=== PATIENT | female | born 1965 | race Caucasian/White ===

== ENCOUNTER 2019-10-06 14:52 | Emergency (ER) | payer OTHER, SELFPAY ==
[2019-10-06 15:03] VITALS: BP 123/73; PULSE 95; RESP 18; TEMP 36.6; O2SAT 100
--- NOTE | 2019-10-06 15:04 | ED.GENADULT ---
HPI - General Adult General Chief complaint: Ear Stated complaint: right ear pain Time Seen by Provider: 10/06/19 15:05 Source: patient and RN notes reviewed Mode of arrival: ambulatory Limitations: no limitations History of Present Illness HPI narrative: This is a 54 years old female presented office for evaluation of right ear pain for 1 week. Pain is getting worse especially at nighttime when she lay down. She also report right side gland pain and hurt to swallow. Denies fever or cough.She took Tylenol with no changes.She does not use Q-tips to clean her ear. Related Data Home Medications Medication Instructions Recorded Confirmed duloxetine 60 mg capsule,delayed 60 mg PO DAILY 08/20/19 10/06/19 release levothyroxine 25 mcg tablet 25 mcg PO DAILY 08/20/19 10/06/19 linaclotide 72 mcg capsule 72 mcg PO QAM 08/20/19 10/06/19 pantoprazole 20 mg tablet,delayed 20 mg PO QAM 08/20/19 10/06/19 release trazodone 50 mg tablet 50 mg PO DAILY tablet 08/20/19 10/06/19 vilazodone 40 mg tablet 40 mg PO DAILY 08/20/19 10/06/19 conjugated estrogens [Premarin] 1.25 mg DAILY 10/06/19 10/06/19 medroxyprogesterone 5 mg DAILY 10/06/19 10/06/19 Allergies Allergy/AdvReac Type Severity Reaction Status Date / Time lamotrigine Allergy Unknown Hallucinati Verified 08/20/19 09:53 ng Review of Systems Review of Systems: Narrative: CONSTITUTIONAL: Denies fever ENT: Denies sinus headache/drainage CARDIOVASCULAR: Denies chest pain RESPIRATORY: Denies cough GASTROINTESTINAL: Denies abdominal pain, nausea, vomiting SKIN: Denies rash MUSCULOSKELETAL: Denies acute back pain, joint pain, or myalgia. NEUROLOGIC: Denies lightheaded PMFSH Past Medical History Medical History Chronic pancreatitis Chronic post-traumatic headache, not intractable Difficulty concentrating Diverticulosis of intestine, part unspecified, without perforation or abscess with bleeding Gastric polyp History of gastric polyp History of traumatic brain injury Hypothyroidism Insomnia Severe episode of recurrent major depressive disorder, without psychotic features Family History Family History Father Hypertension Cerebrovascular accident Family history of congestive heart failure Other Carcinoma of colon Family history of attention deficit hyperactivity disorder (ADHD) Family history of malignant neoplasm Family history of mental disorder Social History Social History Smoking status: Never smoker Second hand tobacco smoke exposure: No Alcohol intake: never Substance use: never Substance use type: does not use Gender identity (if verbalized by the patient): Female Exam Narrative: Exam Narrative: GENERAL: This is a well-nourished, well-developed patient, in no apparent distress. EYES: Sclera clear/white. Vision is grossly intact. EARS: External ears normal, auditory canals clear and without drainage, Left TM appears dull with suppurative and bulging. No erythema. Right TM noted fluid bubbles. Hearing grossly intact. NOSE: External nose normal with no obvious nasal discharge, nares without redness, no rhinorrhea. THROAT: Mucous membranes moist, posterior pharynx clear. NECK: Neck supple, non-tender without lymphadenopathy, masses or thyromegaly. CARDIOVASCULAR: Regular rate and rhythm without murmurs, gallops, or rubs. RESPIRATORY: Clear to auscultation. Breath sounds equal bilaterally. No wheezes, rales, or rhonchi. GASTROINTESTINAL: Abdomen soft, non-tender, nondistended. Bowel sounds are active. No hepato-splenomegaly, or palpable masses. No guarding. SKIN: warm, intact with no suspicious lesions or rash, good texture and turgor. NEURO: awake, alert, and oriented to person, place and time. There were no obvious focal neurologic abnormalities. Steady gait Daniel Coma Scale
== END 2019-10-06 15:16 | disposition home or self-care (01) ==
PROVIDERS: Emergency Provider Nurse Practitioner; PCP Family Medicine
DX: H65.01 Acute serous otitis media, right ear (principal); E03.9 Hypothyroidism, unspecified; F33.9 Major depressive disorder, recurrent, unspecified; Z87.820 Personal history of traumatic brain injury
CPT/HCPCS: 99213; G0463

== ENCOUNTER → 2020-10-30 13:56 | Outpatient (CLI) | payer OTHER, SELFPAY ==
--- NOTE | ~2020-10-30 | US_ITS ---
EXAMINATION: US transvaginal DATE: 10/30/2020 14:27 INDICATION: Postmenopausal bleeding TECHNIQUE: Multiple endovaginal sonographic images of the pelvis were obtained. COMPARISON: 12/01/2015 FINDINGS: The uterus measures 8.1 x 4.0 x 4.9 cm. The endometrial complex measures 3 mm. The ovaries are not visualized however no adnexal abnormality is seen. There is no free fluid in the pelvis. IMPRESSION: 1. No sonographic correlate for the patient's symptoms. Reviewed, dictated and finalized at location A. ESSES CHEMICAL DESIGN ENGINEER
== END ==
PROVIDERS: Visit Provider Obstetrics & Gynecology Gynecology
DX: N95.0 Postmenopausal bleeding (principal)
CPT/HCPCS: 76830

== ENCOUNTER 2020-12-18 14:57 | Outpatient (CLI) | payer OTHER, SELFPAY ==
[2020-12-18 15:59] LABS: Alanine Aminotransferase 19 U/L (4-35); Aspartate Amino Transferase 24 U/L (14-36)
== END 2020-12-18 14:58 | disposition home or self-care (01) ==
PROVIDERS: PCP Family Medicine; Visit Provider Podiatrist Foot & Ankle Surgery
DX: B35.1 Tinea unguium (principal)
CPT/HCPCS: 36415; 84450; 84460

== ENCOUNTER 2021-05-21 15:01 | Outpatient (CLI) | payer OTHER, SELFPAY ==
--- NOTE | ~2021-05-21 | XR_ITS ---
XR shoulder LT min 2V 05/21/2021 15:41 INDICATION: Left shoulder pain PROCEDURE: 4 views left shoulder COMPARISON: No prior studies for comparison. FINDINGS: Fracture, dislocation or subluxation is not identified. The soft tissues appear within norm al limits. No foreign bodies are identified. IMPRESSION: 1: NO ACUTE BONE OR JOINT ABNORMALITY IDENTIFIED. Reviewed, dictated and finalized at location A.
== END 2021-05-21 15:02 | disposition home or self-care (01) ==
LOC: ANHIMG 15:05
PROVIDERS: PCP Family Medicine; Visit Provider Nurse Practitioner Family
DX: M25.512 Pain in left shoulder (principal)
CPT/HCPCS: 73030

== ENCOUNTER → 2021-08-29 13:47 | Outpatient (CLI) | payer OTHER, SELFPAY ==
--- NOTE | ~2021-08-29 | US_ITS ---
EXAMINATION: US transvaginal DATE: 08/29/2021 14:14 INDICATION: Postmenopausal bleeding. TECHNIQUE: Multiple transvaginal sonographic images of the pelvis were obtained. COMPARISON: ultrasound 10/30/20 FINDINGS: The uterus measures 9.1 x 4.5 x 6.4 cm. There is no free fluid in the pelvis. The endometrial complex measures 20 mm in thickness. The ovaries are not visualized. IMPRESSION: 1. Thickened endometrial complex. The differential diagnosis includes endometrial hyperplasia, polyp, and carcinoma. Biopsy is recommended. Reviewed, dictated and finalized at location D. ETICIAN IMPRESSION: 1. Thickened endometrial complex. The differential diagnosis includes endometri al hyperplasia, polyp, and carcinoma. Biopsy is recommended.
== END ==
PROVIDERS: PCP Family Medicine; Visit Provider Obstetrics & Gynecology Gynecology
DX: N95.0 Postmenopausal bleeding (principal); R93.89 Abnormal findings on diagnostic imaging of other specified body structures
CPT/HCPCS: 76830

== ENCOUNTER 2021-09-10 02:52 | Day surgery (SDC) | payer OTHER, SELFPAY ==
[2021-09-05 08:17] VITALS: BMI 30.2
--- NOTE | 2021-09-05 08:23 | PC.NURSE ---
Report to the Outpatient Waiting Room, entrance under the green pavilion located off [facility], at time 0800 on date 09/10/21. OR Time: 1000. - You will be asked a series of questions to screen for COVID 19 for your protection. - A mask is required within the hospital. - No visitors are allowed at this time. Preoperative COVID Testing Requirements: No COVID Test needed if: (proof is required; if not received patient will have Rapid Test prior to entry) - Patient has received COVID Vaccine at least 14 days prior to procedure date or - Patient has positive COVID test result within last 90 days of surgery date. COVID Test needed if above criteria is not met Patients may have clear liquids (water, carbonated beverages, clear teas, apple juice) until 3 hours prior to surgery with a maximum of 20 ounces. - No food from midnight until time of surgery Take the following medications with a SIP of water the morning of surgery: DULOXETINE, ESTRADIOL, LEVOTHYROXINE, TRAZODONE, VILAZODONE Medications to discontinue per physician: VITAMINS/SUPPLEMENTS Date to take last dose: 09/06/21 Please no make-up, nail maori, hairspray, perfume, deodorant, or body powder the day of surgery. No jewelry (including any body piercings) or valuables the day of surgery, leave them at home. Please take a shower or bath the night before, or the morning of, surgery with an antibacterial soap. Wear comfortable, loose fitting clothing. - Jewelry must be removed prior to entering the operating room. Rings and piercings that are not removed may be cut off. - The hospital will not accept responsibility for valuables. - Please leave all valuables, including medications, at home the day of surgery. If you are going home after surgery, a licensed tractor trailer driver must drive you home. - NO public transportation without another adult. - We recommend that an adult stay with you for 24 hours following discharge. - We also recommend that you do not drive, make important decision, drink alcoholic beverages, or take any drugs that were not prescribed by your health care provider for at least 24 hours after your discharge time. Follow any additional instructions given to you from your surgeon. Telephone instructions given to PAT GRIFFIN and asked if any additional questions and then verbalized understanding. Patient advised to call surgeon office or pre surgery nurse liaison [phone] if any additional questions.
[2021-09-10 06:06] VITALS: BP 114/66; PULSE 73; RESP 20; TEMP 36.6; O2SAT 98
[2021-09-10] MEDS: ACETAMINOPHEN 500 MG TABLET 1000 MG PO (06:34)
[2021-09-10] MEDS: LACTATED RINGERS 1,000 ML 30 ML IV CONT (06:35)
--- NOTE | 2021-09-10 06:48 | WPDANESEPPF ---
Anes - Initial Pre Proc Eval Procedure: Operation Date: 09/10/21 07:30 Proposed Procedures p Hysteroscopy, Dilation and Curettage - Ritika Tolliver MD Date/Time: 09/10/21 06:48 Surgeon: Ritika Tolliver MD Pre Op Diagnosis: post menopausal bleeding Patient Data Age: 56 Gender: F Height: 1.7 m Weight: 88.55 kg Last Vital Signs Temp 36.6 C 09/10/21 06:06 Pulse 73 09/10/21 06:06 Resp 20 09/10/21 06:06 BP 114/66 09/10/21 06:06 Pulse Ox 98 09/10/21 06:06 Allergies Allergy/AdvReac Type Severity Reaction Status Date / Time lamotrigine Allergy Unknown Hallucinati Verified 09/10/21 06:08 ng Home Medications Medication Instructions Recorded Confirmed Type levothyroxine 25 mcg tablet 25 mcg PO DAILY 08/20/19 09/10/21 History pantoprazole 20 mg tablet,delayed 20 mg PO QAM 08/20/19 09/10/21 History release duloxetine 60 mg capsule,delayed 60 mg PO DAILY #90 cap 01/16/21 09/10/21 Rx release estradiol 1 mg PO DAILY 09/05/21 09/10/21 History vitamin B complex 1 tablet PO DAILY 09/05/21 09/10/21 History trazodone 50 mg PO HS 09/10/21 09/10/21 History vilazodone [Viibryd] 40 mg PO DAILY 09/10/21 09/10/21 History Patient hx anesthesia problems: none Family hx anesthesia problems: none Results Review: All pre-operative results and documents have been reviewed as part of the pre-operative evaluation. [facility] Past Medical History Medical History Chronic pancreatitis Chronic post-traumatic headache, not intractable Difficulty concentrating Diverticulosis of intestine, part unspecified, without perforation or abscess with bleeding Gastric polyp History of gastric polyp History of traumatic brain injury Hypothyroidism Insomnia Severe episode of recurrent major depressive disorder, without psychotic features Surgical History Surgical History History of sphincterotomy of sphincter of Oddi Family History Family History Father Hypertension Cerebrovascular accident Family history of congestive heart failure Other Carcinoma of colon Family history of attention deficit hyperactivity disorder (ADHD) Family history of malignant neoplasm Family history of mental disorder Social History Social History Social History: Smoking status: Never smoker Second hand tobacco smoke exposure: No Alcohol intake: never Substance use: never Substance use type: does not use Living arrangements: with family Gender identity (if verbalized by the patient): Female Sexual Orientation (if Verbalized by the Patient): Straight or Heterosexual Spiritual care concerns: No Anes - Eval Final PreProcedure Day of Procedure 09/10/21 06:48 Patient weight: obese Heart: regular rate and rhythm Lungs: clear to auscultation Airway: Mallampati scale class II Neurological: alert and oriented Last oral intake: >/= 8 hours ASA classification: II Emergent: no Anesthetic plan: proceed Anesthesia type and monitoring: general GIVS and standard monitoring Results Review: All pre-operative results and documents have been reviewed as part of the pre-operative evaluation. Informed Consent: The patient's anesthetic plan and its attendant risks and benefits were discussed with the patient/family/POA. Questions were solicited and answers provided to the satisfaction of the patient/family/POA.
--- NOTE | 2021-09-10 07:08 | WPDHPUPDATE1 ---
History and Physical Update Update Date/Time: 09/10/21 07:08 History and Physical has been reviewed, including an updated exam of the patient. There are NO changes in the patient's condition. Risks, benefits, and alternatives have been discussed and questions answered. Patient agrees to proceed with procedure.
--- NOTE | 2021-09-10 07:09 | PM.HPGS ---
History of Present Illness History of Present Illness Consent: Risks, benefits, and alternatives have been discussed and questions answered. Patient agrees to proceed with procedure. Chief complaint: post menopausal bleeding Narrative: Felisa Montejo is a 56 year old female with postmenopausal bleeding for over 1 month. She was evaluated on August 28 with a normal pelvic exam. She underwent pelvic ultrasound which did reveal a thickened endometrium at 20mm. It was recommended to proceed with D&C hysteroscopy. Possible pathology was discussed. Risks of infection, bleeding, and perforation were reviewed. Review of Systems Review of Systems: not repeated day of surgery; patient states no changes in status PMFSH Past Medical History Medical History (Updated 09/10/21 @ 07:14 by Ritika Tolliver MD) Chronic pancreatitis Chronic post-traumatic headache, not intractable Diverticulosis of intestine, part unspecified, without perforation or abscess with bleeding History of anxiety History of gastric polyp History of traumatic brain injury Hypothyroidism Insomnia (normal spontaneous vaginal delivery) x3 Severe episode of recurrent major depressive disorder, without psychotic features Surgical History Surgical History (Updated 09/10/21 @ 07:13 by Ritika Tolliver MD) History of hysteroscopy 2016 History of sphincterotomy of sphincter of Oddi Status post laparoscopy 1981,83,92 Status post LEEP (loop electrosurgical excision procedure) of cervix Status post tubal ligation Family History Family History Father Hypertension Cerebrovascular accident Family history of congestive heart failure Other Carcinoma of colon Family history of attention deficit hyperactivity disorder (ADHD) Family history of malignant neoplasm Family history of mental disorder Social History Social History Social History: Smoking status: Never smoker Second hand tobacco smoke exposure: No Alcohol intake: never Substance use: never Substance use type: does not use Living arrangements: with family Gender identity (if verbalized by the patient): Female Sexual Orientation (if Verbalized by the Patient): Straight or Heterosexual Spiritual care concerns: No Meds Home Medications and Allergies Home Medications Medication Instructions Recorded Confirmed Type levothyroxine 25 mcg tablet 25 mcg PO DAILY 08/20/19 09/10/21 History pantoprazole 20 mg tablet,delayed 20 mg PO QAM 08/20/19 09/10/21 History release duloxetine 60 mg capsule,delayed 60 mg PO DAILY #90 cap 01/16/21 09/10/21 Rx release estradiol 1 mg PO DAILY 09/05/21 09/10/21 History vitamin B complex 1 tablet PO DAILY 09/05/21 09/10/21 History trazodone 50 mg PO HS 09/10/21 09/10/21 History vilazodone [Viibryd] 40 mg PO DAILY 09/10/21 09/10/21 History Allergies Allergy/AdvReac Type Severity Reaction Status Date / Time lamotrigine Allergy Unknown Hallucinati Verified 09/10/21 06:08 ng Vital Signs Vital Signs - 24 hr 09/10/21 06:06 Temperature 97.8 F Pulse Rate 73 Respiratory Rate 20 Blood Pressure 114/66 Pulse Oximetry 98 Exam Const: General: healthy appearing and alert Orientation/consciousness: patient oriented x3 GI: GI Palp: Yes Soft to palpation, No Tenderness to palpation present (GI) and No Palpable mass present : External Female Exam: normal external appearance Speculum Exam - Vagina: normal appearance of the vagina and normal vaginal discharge Speculum Exam - Cervix: normal appearance of the cervix Bimanual exam- vagina & uterus: uterine size normal and consistency normal Bimanual Exam- Adnexa, other: normal adnexae and No adnexal tenderness Neuro: General: patient oriented x3 Assessment and Plan Assessment and plan (1) Post-menopausal bleeding: Code(s): N95.0
--- NOTE | 2021-09-10 07:43 | W.PM.PROC2 ---
Procedure Note - Detailed Date of Procedure 09/10/21 Pre-op Diagnosis post menopausal bleeding Post-op Diagnosis same Procedure Performed D&C hysteroscopy Surgeon Ritika Tolliver MD Anesthesia MAC and local Findings Uterus is 8cm and appears grossly Description of Procedure The patient is taken to the operating room and placed under anesthesia in the dorsal lithotomy position. She was prepped and draped in usual sterile fashion. Santa Claus speculum was placed in the vagina and the cervix was grasped on the anterior lip with a tenaculum. The cervix is injected in each quadrant with lidocaine. The uterus is sounded to 8cm. The cervix is serially dilated with Hegar to an 8. The diagnostic hysteroscope was placed. No abnormalities were noted therefore the hysteroscope was removed. The medium sharp curette is used to curette the endometrium until a good uterine cry was noted in all areas. All instruments were then removed. The patient is awakened from anesthesia and taken to recovery in stable condition. Sponge, needle, and instrument counts are correct per the OR staff. Estimated Blood Loss 5 Drains No Packing No Pathology yes (Endometrial curetting) Complications No immediate complications Condition stable Disposition PACU
[2021-09-10 07:50] VITALS: BP 139/69; PULSE 76; RESP 12; O2SAT 94
[2021-09-10] MEDS: oxyCODONE HCL (*CRX) 5 MG TAB IR PO (08:15)
[2021-09-10 08:20] VITALS: BP 123/75; PULSE 67; RESP 12; O2SAT 96
[2021-09-10 08:50] VITALS: BP 124/65; PULSE 63; RESP 12
[2021-09-10 09:10] VITALS: BP 126/66; PULSE 68; RESP 12
== END 2021-09-10 09:20 | disposition home or self-care (01) ==
PROVIDERS: PCP Family Medicine; Visit Provider Obstetrics & Gynecology Gynecology
PROC: 0U5B8ZZ Destruction of Endometrium, Via Natural or Artificial Opening Endoscopic (ICD-10-PCS; CPT 58563; principal; 2021-09-10 07:30)
DX: N95.0 Postmenopausal bleeding (principal); K86.1 Other chronic pancreatitis; E03.9 Hypothyroidism, unspecified; F33.2 Major depressive disorder, recurrent severe without psychotic features; Z87.820 Personal history of traumatic brain injury; E66.9 Obesity, unspecified; Z68.30 Body mass index [BMI] 30.0-30.9, adult
CPT/HCPCS: 58558; 88305; A9270; J2250; J2405; J2704; J3010; J7030; J7120

== ENCOUNTER 2021-10-09 16:49 | Outpatient (CLI) | payer OTHER, SELFPAY ==
[2021-10-09 17:50] LABS: Hematocrit 33.2 % (37.0-47.0); Hemoglobin 10.6 g/dL (12.0-15.0); Mean Corpuscular HGB Conc 31.9 g/dl (32-36); Mean Corpuscular Hemoglobin 29.4 pg (26-34); Mean Platelet Volume 10.1 fl (7.4-10.4); Platelet Count Result 294 k/mm3 (150-375); Red Blood Count 3.61 M/mm3 (4.2-5.4); Red Cell Distribution Width 12.3 % (11.5-14.5); White Blood Count 10.3 K/mm3 (4.5-10.0)
== END 2021-10-09 16:50 | disposition home or self-care (01) ==
LOC: ANHLAB 16:52
PROVIDERS: PCP Family Medicine; Visit Provider Obstetrics & Gynecology Gynecology
DX: N92.0 Excessive and frequent menstruation with regular cycle (principal)
CPT/HCPCS: 36415; 85027

== ENCOUNTER → 2022-07-22 10:30 | Outpatient (CLI) | payer OTHER, SELFPAY ==
--- NOTE | ~2022-07-22 | US_ITS ---
EXAMINATION: US transvaginal DATE: 07/22/2022 10:56 INDICATION: Postmenopausal bleeding Comparison:08/29/2021 TECHNIQUE: Multiple transabdominal and endovaginal sonographic images of the pelvis performed. FINDINGS: The uterus measures 8.8 x 4.4 x 4.7 cm. The endometrial complex measures 7 mm. The ovaries are not visualized. There is no free fluid in the pelvis. There are no abnormal masses seen on either side. IMPRESSION: 1. Thickened endomtrial complex. The differential diagnosis includes endometrial hyperplasia, polyp a nd carcinoma. Biopsy is recommended. Reviewed, dictated and finalized at location B. BUILDER APPRENTICE WOOD IMPRESSION: 1. Thickened endomtrial complex. The differential diagnosis includes endometria l hyperplasia, polyp and carcinoma. Biopsy is recommended.
== END ==
PROVIDERS: PCP Family Medicine; Visit Provider Nurse Practitioner
DX: N95.0 Postmenopausal bleeding (principal)
CPT/HCPCS: 76830

== ENCOUNTER → 2022-08-05 13:26 | Outpatient (CLI) | payer OTHER, SELFPAY ==
--- NOTE | ~2022-08-05 | MMUS_ITS ---
EXAMINATION: MM diag ander implant BI w mis, US breast BI limited HISTORY: Bilateral breast pain TECHNIQUE: Craniocaudal, mediolateral, and mediolateral oblique 3-D tomosynthesis images with implant displacement of the breasts were performed and synthetic 2-D images were generated. Craniocaudal, m ediolateral oblique, and mediolateral views of the breasts without implant displacement were obtained using full field digital mammography. CAD analysis was submitted and interpreted. High resolution li mited bilateral breast ultrasound was performed. COMPARISON: 09/03/2016, 05/26/2015 BREAST PARENCHYMAL COMPOSITION: The breasts are heterogeneously dense, which may obscure small masses . FINDINGS: MAMMOGRAPHIC FINDINGS: No suspicious mass, calcification, or architectural distortion are identified in either breast to sug gest malignancy. There has been no suspicious interval change. No mammographic correlate is identifie d for the patient's reported pain in either breast. ULTRASOUND: There is no evidence of focal abnormal solid or cystic lesion in the vicinity of the patient's report ed pain in either breast. IMPRESSION: 1. No specific mammographic or sonographic correlate is identified for the patient's reported pain in either breast. Further evaluation at this time should be based on clinical assessment. Continued fol low-up physical examination is recommended. 2. Recommend routine screening mammography in one year. BI-RADS Category 1: Negative Reviewed, dictated and finalized at location A. HANA DEVELOPER IMPRESSION: 1. No specific mammographic or sonographic correlate is identified for the bolivar ent's reported pain in either breast. Further evaluation at this time should be based on clinical assessment. Continued follow-up physical examination is christopher mmended. 2. Recommend routine screening mammography in one year. BI-RADS Category 1: Negative
== END ==
PROVIDERS: PCP Family Medicine; Visit Provider Nurse Practitioner
DX: N64.4 Mastodynia (principal)
CPT/HCPCS: 76642; 77062; 77066; G0279

== ENCOUNTER 2022-11-26 16:10 | Outpatient (CLI) | payer OTHER, SELFPAY ==
--- NOTE | ~2022-11-26 | XR_ITS ---
EXAMINATION: XR elbow LT min 3V DATE: 11/26/2022 16:26 INDICATION: Left elbow pain TECHNIQUE: Anteroposterior, two oblique and lateral views of the left elbow were obtained. COMPARISON: None. FINDINGS: Bone alignment is normal. There is no fracture. There is mild irregularity at the lateral a spect of the radial head and in the adjacent lateral condyle of the humerus. There is no joint effusi on. Soft tissues are unremarkable. IMPRESSION: 1. Osteoarthritis without acute osseous abnormality. Reviewed, dictated and finalized at location F.
== END 2022-11-26 16:11 | disposition home or self-care (01) ==
PROVIDERS: PCP Family Medicine; Visit Provider Physician Assistant
DX: M19.022 Primary osteoarthritis, left elbow (principal)
CPT/HCPCS: 73080

== ENCOUNTER 2023-06-16 09:12 | Outpatient (CLI) | payer OTHER, SELFPAY ==
--- NOTE | ~2023-06-16 | MMUS_ITS ---
EXAMINATION: MM diag ander implant RT w mis, US breast RT complete HISTORY: Palpable right breast abnormality TECHNIQUE: Additional 3-D tomosynthesis images of the right breast were performed and synthetic 2-D i mages were generated. CAD analysis was submitted and interpreted. High resolution complete right maxi st ultrasound was performed. COMPARISON: Comparison to multiple prior studies sequentially, with oldest reviewed study dated 05/26. BREAST PARENCHYMAL COMPOSITION: Breast composed of scattered areas of fibroglandular density. There i s a subpectoral saline implant. FINDINGS: MAMMOGRAPHIC FINDINGS: There are no suspicious masses, calcifications or architectural distortion in the right breast to sug gest malignancy. ULTRASOUND: Complete US of all 4 quadrants of the right breast and retroareolar region was reviewed. Normal heter ogeneous echotexture without focal solid or cystic mass. IMPRESSION: 1. No evidence for malignancy in the right breast. 2. Routine yearly screening mammogram and regular clinical breast examination are recommended. BI-RADS Category 1: Negative Reviewed, dictated and finalized at location A. IMPRESSION: 1. No evidence for malignancy in the right breast. 2. Routine yearly screening mammogram and regular clinical breast examination a re recommended. BI-RADS Category 1: Negative
== END 2023-06-16 09:13 | disposition home or self-care (01) ==
LOC: CHSIMG 09:15
PROVIDERS: PCP Family Medicine; Visit Provider Obstetrics & Gynecology Gynecology
DX: R92.8 Other abnormal and inconclusive findings on diagnostic imaging of breast (principal)
CPT/HCPCS: 76641; 77061; 77065; G0279

== ENCOUNTER 2023-08-13 12:42 | Outpatient (CLI) | payer OTHER, SELFPAY ==
--- NOTE | ~2023-08-13 | XR_ITS ---
EXAMINATION: XR chest 2V Exam Date/Time: 08/13/2023 12:55 SOCIAL SERVICES DIRECTOR HISTORY: R05.9 - Cough, CHEST TIGHTNESS Comparison: 10/15/2017. RESULT: Lines, tubes, and devices: Cystectomy clips. Lungs and pleura: Lungs are clear. Apparent right lower lobe opacities likely related to prominent p ericardial fat. Lingular scar. Cardiomediastinal silhouette: Stable. Other: No acute osseous or upper abdominal finding. IMPRESSION: No acute cardiopulmonary process. Reviewed, dictated and finalized at location K. AL SERVICES DIRECTOR
== END 2023-08-13 12:43 | disposition home or self-care (01) ==
PROVIDERS: PCP Family Medicine; Visit Provider Physician Assistant
DX: R05.9 Cough, unspecified (principal)
CPT/HCPCS: 71046

== ENCOUNTER 2023-09-29 10:43 | Outpatient (CLI) | payer OTHER, SELFPAY ==
[2023-09-29 11:23] LABS: Hematocrit 45.3 % (37.0-47.0); Hemoglobin 14.2 g/dL (12.0-15.0); Mean Corpuscular HGB Conc 31.3 g/dl (32-36); Mean Corpuscular Hemoglobin 28.5 pg (26-34); Mean Platelet Volume 10.3 fl (7.4-10.4); Platelet Count Result 345 k/mm3 (150-375); Red Blood Count 4.98 M/mm3 (4.2-5.4); Red Cell Distribution Width 12.5 % (11.5-14.5); White Blood Count 9.4 K/mm3 (4.5-10.0)
[2023-09-29 11:34] LABS: Alanine Aminotransferase 11 U/L (6-35); Albumin Level 4.3 g/dL (3.5-5.1); Alkaline Phosphatase 81 U/L (38-126); Anion Gap 8 mmol/L (8-16); Appearance Urine Cloudy (Clear); Aspartate Amino Transferase 17 U/L (14-36); Bacteria Urine Rare /hpf; Bilirubin Urine Negative (Negative); Bilirubin,Total 0.6 mg/dL (0.2-1.3); Blood Urea Nitrogen 12 mg/dL (7-17); Blood Urine 1+ (Negative); Calcium 9.8 mg/dL (8.4-10.2); Carbon Dioxide 25 mmol/L (22-30); Chloride 104 mmol/L (98-107); Cholesterol 260 mg/dL (0-200); Color Urine Yellow (Yellow); Estimated Glomerular Filt Rate > 60; Glucose 92 mg/dL (65-110); Glucose Urine UA Negative (Negative); HDL Direct 58 mg/dL; Ketones Urine Trace mg/dL (Negative); Leukocyte Esterase Ur Negative LEU/UL (NEGATIVE); Nitrate Urine Negative (Negative); Non Pathogenic Casts 0-2; Potassium 3.8 mmol/L (3.4-5.0); Protein Urine Negative (Negative); Sodium 137 mmol/L (137-145); Specific Grav Ur 1.019 (1.001-1.035); Squamous Epithelial Cell Urine Moderate /hpf (Few); Triglycerides 138 mg/dL (<150); WBC Urine 0-5 /hpf (0-3); pH Urine 5.5 (5.0-9.0)
[2023-09-29 11:46] LABS: LDL Cholesterol Direct 162 mg/dL
[2023-09-29 12:08] LABS: Add Urine Microscopic? YES
== END 2023-09-29 10:44 | disposition home or self-care (01) ==
LOC: ANHLAB 10:44
PROVIDERS: PCP Family Medicine; Visit Provider Physician Assistant Medical
DX: E03.9 Hypothyroidism, unspecified (principal); F32.A Depression, unspecified; Z86.39 Personal history of other endocrine, nutritional and metabolic disease; Z00.00 Encounter for general adult medical examination without abnormal findings
CPT/HCPCS: 36415; 80053; 80061; 81001; 82607; 84443; 85027

== ENCOUNTER 2023-11-21 09:04 | Outpatient (CLI) | payer OTHER, SELFPAY ==
--- NOTE | ~2023-11-21 | XR_ITS ---
XR shoulder LT min 2V DATE: 11/21/2023 09:23 INDICATION: Pain, popping, limited range of motion TECHNIQUE: 4 views COMPARISON: None FINDINGS: No fracture or dislocation, periosteal reaction or bone destruction. Normal alignment at th e acromioclavicular and glenohumeral joints. Levoscoliosis of the thoracic spine. IMPRESSION: Negative left shoulder Reviewed, dictated and finalized at location B. IMPRESSION: Negative left shoulder
== END 2023-11-21 09:05 | disposition home or self-care (01) ==
PROVIDERS: PCP Family Medicine; Visit Provider Physician Assistant Medical
DX: M25.512 Pain in left shoulder (principal)
CPT/HCPCS: 73030

== ENCOUNTER 2023-12-24 15:20 | Outpatient (CLI) | payer OTHER, SELFPAY ==
--- NOTE | ~2023-12-24 | US_ITS ---
EXAMINATION: US transvaginal DATE: 12/24/2023 15:41 INDICATION: Postmenopausal bleeding. TECHNIQUE: Multiple transvaginal sonographic images of the pelvis were obtained. COMPARISON: Ultrasound 07/22/2022 FINDINGS: The uterus measures 8.3 x 4.3 x 5.5 cm. There is no free fluid in the pelvis. The endometrial complex measures 9 mm in thickness. The ovaries are not visualized. IMPRESSION: 1. Thickened endometrial complex. The differential diagnosis includes endometrial hyperplasia, polyp, and carcinoma. Biopsy is recommended. Reviewed, dictated and finalized at location E. IMPRESSION: 1. Thickened endometrial complex. The differential diagnosis includes endometri al hyperplasia, polyp, and carcinoma. Biopsy is recommended.
== END 2023-12-24 15:21 ==
PROVIDERS: PCP Family Medicine; Visit Provider Obstetrics & Gynecology Gynecology
DX: N95.0 Postmenopausal bleeding (principal)
CPT/HCPCS: 76830

== ENCOUNTER 2024-01-27 19:02 | Emergency (ER) | payer OTHER, SELFPAY ==
--- NOTE | ~2024-01-27 | CT_ITS ---
CT of the Abdomen and Pelvis: Indication: Abdominal pain Technique: 2.5 mm axial scans were obtained through the abdomen and pelvis following intravenous adm inistration of 100 cc of Omnipaque 350. Dose reduction technique was used on this scan by utilizing a utomated exposure control and iterative reconstruction technique. The dose-length product (DLP) was 6 55.29 mGy-cm. Findings: Scans through the lung bases are unremarkable. The liver, spleen, pancreas, adrenals and kidneys are within normal limits. Cholecystectomy clips are present. Small amount of pneumobilia noted. No evidence of aortic aneurysm. No lymphadenopathy. No bowel obstruction or bowel wall thickening. There is no evidence to suggest acute appendicitis. Images through the pelvis were performed. Urinary bladder unremarkable. No pelvic mass seen. No ascit es. Impression: No significant abnormalities seen. Reviewed, dictated and finalized at [facility]. Impression: No significant abnormalities seen.
[2024-01-27 19:19] VITALS: BP 113/83; PULSE 92; RESP 20; TEMP 36.6; O2SAT 100
[2024-01-27 20:09] LABS: Basophils Percent Auto 0.5 % (0.2-1.2); Eosinophils Percent Auto 0.7 % (0-4.4); Hematocrit 43.7 % (37.0-47.0); Immature Granulocyte Absolute 0.01 K/mm3 (0.00-0.031); Immature Granulocyte Percent A 0.2 % (0-0.5); Lymphocytes Absolute Auto 0.98 K/mm3 (0.9-3.2); Mean Corpuscular Volume 90.5 fl (80-100); Mean Platelet Volume 10.1 fl (7.4-10.4); Monocytes Absolute Auto 0.6 K/mm3 (0.1-0.6); Monocytes Percent Auto 15.7 % (2.6-8.5); Neutrophils Absolute Auto 2.4 K/mm3 (1.3-6.7); Neutrophils Percent Auto 58.9 % (45.5-73.1); Platelet Count Result 325 k/mm3 (150-375); Red Blood Count 4.83 M/mm3 (4.2-5.4); Red Cell Distribution Width 12.4 % (11.5-14.5); White Blood Count 4.1 K/mm3 (4.5-10.0)
[2024-01-27 20:15] LABS: Alanine Aminotransferase 15 U/L (6-35); Albumin Level 4.4 g/dL (3.5-5.1); Alkaline Phosphatase 74 U/L (38-126); Anion Gap 10 mmol/L (4-12); Aspartate Amino Transferase 22 U/L (14-36); Bilirubin,Total 0.3 mg/dL (0.2-1.3); Blood Urea Nitrogen 7 mg/dL (7-17); Calcium 9.6 mg/dL (8.4-10.2); Carbon Dioxide 22 mmol/L (22-30); Chloride 107 mmol/L (98-107); Estimated CRCL calculation 59 ml/min; Estimated Glomerular Filt Rate 57; Glucose 100 mg/dL (65-110); Lipase 74 U/L (23-300); Potassium 3.8 mmol/L (3.4-5.0); Sodium 139 mmol/L (137-145)
[2024-01-27 20:27] LABS: Appearance Urine Turbid (Clear); Bacteria Urine 4+ /hpf; Bilirubin Urine Negative (Negative); Blood Urine 2+ (Negative); Color Urine Dark Yellow (Yellow); Glucose Urine UA Negative (Negative); Ketones Urine Trace mg/dL (Negative); Leukocyte Esterase Ur 1+ LEU/UL (Negative); Need Manual Microscopic Reviewed; Nitrate Urine Negative (Negative); Non Pathogenic Casts 0-2; Protein Urine 1+ mg/dL (Negative); Specific Grav Ur 1.027 (1.001-1.035); Squamous Epithelial Cell Urine Many /hpf (Few); WBC Urine 21-50 /hpf (0-3)
[2024-01-27 20:30] LABS: Add Urine Microscopic? YES
[2024-01-27 22:27] VITALS: BP 136/77; PULSE 83; RESP 18; O2SAT 100
[2024-01-28 00:12] VITALS: BP 109/77; PULSE 84; RESP 16; O2SAT 100
[2024-01-28] MEDS: SODIUM CHLORIDE 0.9% IV 1,000 ML 999 ML IV CONT (01:27)
[2024-01-28] MEDS: MORPHINE SULFATE (*CRX) 4 MG/ML INJ 2 MG IV PUSH (01:27)
[2024-01-28] MEDS: ONDANSETRON INJ 4 MG/2 ML VIAL IV PUSH (01:27)
[2024-01-28 01:44] LABS: Lactic Acid Reflex 0.9 mmol/L (0.7-2.0)
[2024-01-28] MEDS: MORPHINE SULFATE (*CRX) 4 MG/ML INJ IV PUSH (05:04)
[2024-01-28 05:23] VITALS: BP 115/68; PULSE 70; RESP 19; O2SAT 96
--- NOTE | 2024-01-28 06:01 | ED.GENADULT ---
HPI - General Adult General Chief complaint: Nausea/Vomiting/Diarrhea Stated complaint: vomiting and diarrhea Time Seen by Provider: 01/28/24 00:23 History of Present Illness HPI narrative: Patient 58-year-old female who presents emergency department chief complaint of abdominal pain. Patient reports the discomfort started on Friday reports that she has been having nausea vomiting and that is also been having diarrhea. The patient reports that nausea vomiting has improved somewhat reports that she is still having discomfort in her abdomen. Patient reports she has had a subjective fever at home. The patient reports no blood in the diarrhea no blood in the vomitus. Related Data Home Medications Medication Instructions Recorded Confirmed levothyroxine 25 mcg tablet 25 mcg PO DAILY 08/20/19 01/01/24 estradiol 1 mg tablet 1 mg PO DAILY 09/05/21 01/01/24 medroxyprogesterone 5 mg tablet 5 mg PO DAILY 11/23/21 01/01/24 Allergies Allergy/AdvReac Type Severity Reaction Status Date / Time lamotrigine Allergy Unknown Hallucinati Verified 01/27/24 22:29 ng prednisone AdvReac Intermediate Palpitation Verified 01/27/24 22:29 s Review of Systems Review of Systems: A 10 system review of systems was completed on the patient and is negative except for what is stated in the HPI. Nursing and ancillary documentation was reviewed. [facility] Past Medical History Medical History Arthritis of elbow, left, degenerative Chronic pancreatitis Chronic post-traumatic headache, not intractable Diverticulosis of intestine, part unspecified, without perforation or abscess with bleeding History of anxiety History of gastric polyp History of traumatic brain injury Hypothyroidism Insomnia Lateral epicondylitis of left elbow (normal spontaneous vaginal delivery) x3 Severe episode of recurrent major depressive disorder, without psychotic features Surgical History Surgical History History of hysteroscopy 2016 History of sphincterotomy of sphincter of Oddi Status post laparoscopy 1981,,92 Status post LEEP (loop electrosurgical excision procedure) of cervix Status post tubal ligation Family History Family History Father Hypertension Cerebrovascular accident Family history of congestive heart failure Other Carcinoma of colon Family history of attention deficit hyperactivity disorder (ADHD) Family history of malignant neoplasm Family history of mental disorder Social History Social History Social History: Smoking status: Never smoker Second hand tobacco smoke exposure: No Alcohol intake: never Substance use: never Substance use type: does not use Living arrangements: with family Occupation/Education: occupation Gender identity (if verbalized by the patient): Female Sexual Orientation (if Verbalized by the Patient): Straight or Heterosexual Spiritual care concerns: No Exam Narrative: GENERAL: Well-appearing, well-nourished, and in no acute distress. HEAD: Normocephalic, atraumatic. EYES: PERRLA and EOMI. ENT: Nares clear, no rhinorrhea or epistaxis. Mucous membranes moist. NECK: Supple. CHEST: Clear to auscultation. No respiratory distress. HEART: Regular rate and rhythm. No murmur heard. Normal peripheral pulses. ABDOMEN: Soft, diffuse tenderness, nondistended, normal active bowel sounds. EXTREMITIES: Normal range of motion. No edema. SKIN: Warm, dry, no rash. NEURO: No focal deficits. Alert and oriented x3. PSYCH: Normal mood and affect. Course Vital Signs Vital signs: Vital Signs Temperature 36.6 C 01/27/24 19:19 Pulse Rate 92 01/27/24 19:19 Respiratory Rate 20 01/27/24 19:19 Blood Pressure 113/83
[2024-01-28 06:20] VITALS: BP 107/74; PULSE 80; RESP 20; O2SAT 97
== END 2024-01-28 06:20 | disposition home or self-care (01) ==
PROVIDERS: Emergency Medicine; Emergency Provider Emergency Medicine; PCP Family Medicine
DX: N39.0 Urinary tract infection, site not specified (principal); K52.9 Noninfective gastroenteritis and colitis, unspecified; M19.022 Primary osteoarthritis, left elbow; K86.1 Other chronic pancreatitis; E03.9 Hypothyroidism, unspecified; Z79.899 Other long term (current) drug therapy; F41.9 Anxiety disorder, unspecified; F33.9 Major depressive disorder, recurrent, unspecified
CPT/HCPCS: 36415; 74177; 80053; 81001; 81025; 83605; 83690; 85025; 87086; 87088; 96361; 96374; 96375; 96376; 99284; J2270; J2405; J7030; Q9967

== ENCOUNTER 2024-02-23 01:18 | Day surgery (SDC) | payer OTHER, SELFPAY ==
[2024-02-20 15:24] VITALS: BMI 28.8
--- NOTE | 2024-02-20 15:28 | PC.NURSE ---
Report to the Outpatient Waiting Room, entrance under the green pavilion located off [facility], at time _0615_ on date _[id number]_. Planned Procedure Time: _0815_. Time changes happen often and if your time is changed the preop area will call you the afternoon before. - You and your visitor will be asked to self-screen and do not enter if you have any COVID symptoms. - A mask is optional within the hospital at this time. Patients may have clear liquids (water, carbonated beverages, clear teas, apple juice) until 3 hours prior to surgery with a maximum of 20 ounces. - No food from midnight until time of surgery Take the following medications with a SIP of water the morning of surgery: _Levothyroxine, Duloxetine and Vilazodone DO NOT STOP ANY OF YOUR OTHER PRESCRIPTION MEDICATIONS PRIOR TO SURGERY ?EXCEPT THE FOLLOWING Medications to discontinue per physician None Date to take last dose Please no make-up, nail sinhala, hairspray, perfume, deodorant, or body powder the day of surgery. No jewelry (including any body piercings) or valuables the day of surgery, leave them at home. Please take a shower or bath the night before, or the morning of, surgery with an antibacterial soap. Wear comfortable, loose fitting clothing. - Jewelry must be removed prior to entering the operating room. Rings and piercings that are not removed may be cut off. - The hospital will not accept responsibility for valuables. - Please leave all valuables, including medications, at home the day of surgery. If you are going home after surgery, a licensed driver education instructor must drive you home. - NO public transportation without another adult if you receive anesthesia. - We recommend that an adult stay with you for 24 hours following discharge. - We also recommend that you do not drive, make important decision, drink alcoholic beverages, or take any drugs that were not prescribed by your health care provider for at least 24 hours after your discharge time. Follow any additional instructions given to you from your surgeon. If you or anyone in your household have experienced Covid symptoms in the past week, please notify your surgeon or the nurse liaison at the phone number below for possible testing. Telephone instructions given to _Angelesa__and asked if any additional questions and then verbalized understanding. Patient advised to call surgeon office or pre surgery nurse liaison [phone] if any additional questions.
[2024-02-23 07:00] VITALS: BP 127/70; PULSE 93; RESP 14; TEMP 36.3; O2SAT 98
[2024-02-23] MEDS: ACETAMINOPHEN 500 MG TABLET 1000 MG PO (07:00)
[2024-02-23] MEDS: LACTATED RINGERS 1,000 ML 30 ML IV CONT (07:00)
--- NOTE | 2024-02-23 07:14 | WPDHPUPDATE1 ---
History and Physical Update Update Date/Time: 02/23/24 07:14 History and Physical has been reviewed, including an updated exam of the patient. There are NO changes in the patient's condition. Risks, benefits, and alternatives have been discussed and questions answered. Patient agrees to proceed with procedure.
--- NOTE | 2024-02-23 07:14 | PM.HPGS ---
History of Present Illness History of Present Illness Consent: Risks, benefits, and alternatives have been discussed and questions answered. Patient agrees to proceed with procedure. Chief complaint: post menopausal bleeding Narrative: Felisa Montejo is a 58 year old female with postmenopausal bleeding noted on exam. The patient denied seeing vaginal blood. Pelvic ultrasound however revealed endometrium thickened at 9mm. Was recommended to undergo D&C hysteroscopy for further evaluation. Risks of infection, bleeding, perforation, possible pathology are discussed. Patient voiced understanding and agreed to proceed. Review of Systems Review of Systems: not repeated day of surgery; patient states no changes in status PMFSH Past Medical History Medical History (Updated 01/29/24 @ 00:00 by Background Daemon) Arthritis of elbow, left, degenerative Chronic pancreatitis Chronic post-traumatic headache, not intractable Diverticulosis of intestine, part unspecified, without perforation or abscess with bleeding History of anxiety History of gastric polyp History of traumatic brain injury Hypothyroidism Insomnia Lateral epicondylitis of left elbow (normal spontaneous vaginal delivery) x3 Severe episode of recurrent major depressive disorder, without psychotic features Surgical History Surgical History (Updated 02/23/24 @ 07:16 by Ritika Tolliver MD) History of hysteroscopy 2021 History of sphincterotomy of sphincter of Oddi Status post laparoscopy 1981,,92 Status post LEEP (loop electrosurgical excision procedure) of cervix Status post tubal ligation Family History Family History Father Hypertension Cerebrovascular accident Family history of congestive heart failure Other Carcinoma of colon Family history of attention deficit hyperactivity disorder (ADHD) Family history of malignant neoplasm Family history of mental disorder Social History Social History Social History: Smoking status: Never smoker Second hand tobacco smoke exposure: No Alcohol intake: current Substance use: never Substance use type: does not use Living arrangements: with family Occupation/Education: occupation Gender identity (if verbalized by the patient): Female Sexual Orientation (if Verbalized by the Patient): Straight or Heterosexual Spiritual care concerns: No Meds Home Medications and Allergies Home Medications Medication Instructions Recorded Confirmed Type levothyroxine 25 mcg tablet 25 mcg PO DAILY 08/20/19 02/20/24 History estradiol 1 mg tablet 1 mg PO DAILY 09/05/21 02/20/24 History medroxyprogesterone 5 mg tablet 5 mg PO DAILY 11/23/21 02/20/24 History pantoprazole 40 mg tablet,delayed 40 mg PO QAM #90 tabs 10/16/23 02/20/24 Rx release duloxetine 60 mg capsule,delayed 60 mg PO DAILY #90 caps 12/30/23 02/20/24 Rx release trazodone 50 mg tablet See Rx Instructions .Route 12/30/23 02/20/24 Rx .COMPLEX #90 tabs vilazodone 40 mg tablet See Rx Instructions .Route 12/30/23 02/20/24 Rx .COMPLEX #90 tabs Allergies Allergy/AdvReac Type Severity Reaction Status Date / Time prednisone AdvReac Intermediate Palpitation Verified 02/20/24 15:21 s lamotrigine AdvReac Unknown Hallucinati Verified 02/20/24 15:21 ng Exam Const: General: healthy appearing and alert Orientation/consciousness: patient oriented x3 Resp: Effort & Inspection: normal respiratory effort GI: GI Palp: Yes Soft to palpation, No Tenderness to palpation present (GI) and No Palpable mass present : External Female Exam: normal external appearance Speculum Exam - Vagina: normal appearance of the vagina and normal vaginal discharge Speculum Exam - Cervix: normal appearance of the cervix and Other cervical findings present ( Blood at the cervical o
--- NOTE | 2024-02-23 07:55 | WPDANESEPPF ---
Anes - Initial Pre Proc Eval Procedure: Operation Date: 02/23/24 08:15 Proposed Procedures p Hysteroscopy Dilation and Curettage - Ritika Tolliver MD Date/Time: 02/23/24 07:55 Surgeon: Ritika Tolliver MD Pre Op Diagnosis: post menopausal bleeding Patient Data Age: 58 Gender: F Height: 1.7 m Weight: 86.8 kg Last Vital Signs Temp 36.3 C L 02/23/24 07:00 Pulse 93 02/23/24 07:00 Resp 14 02/23/24 07:00 BP 127/70 02/23/24 07:00 Pulse Ox 98 02/23/24 07:00 O2 Del Method Room Air 02/23/24 07:00 Allergies Allergy/AdvReac Type Severity Reaction Status Date / Time prednisone AdvReac Intermediate Palpitation Verified 02/23/24 07:19 s lamotrigine AdvReac Unknown Hallucinati Verified 02/23/24 07:19 ng Home Medications Medication Instructions Recorded Confirmed Type levothyroxine 25 mcg tablet 25 mcg PO DAILY 08/20/19 02/20/24 History estradiol 1 mg tablet 1 mg PO DAILY 09/05/21 02/20/24 History medroxyprogesterone 5 mg tablet 5 mg PO DAILY 11/23/21 02/20/24 History pantoprazole 40 mg tablet,delayed 40 mg PO QAM #90 tabs 10/16/23 02/20/24 Rx release duloxetine 60 mg capsule,delayed 60 mg PO DAILY #90 caps 12/30/23 02/20/24 Rx release trazodone 50 mg tablet See Rx Instructions .Route 12/30/23 02/20/24 Rx .COMPLEX #90 tabs vilazodone 40 mg tablet See Rx Instructions .Route 12/30/23 02/20/24 Rx .COMPLEX #90 tabs Patient hx anesthesia problems: none Family hx anesthesia problems: none Results Review: All pre-operative results and documents have been reviewed as part of the pre-operative evaluation. [facility] Past Medical History Medical History Arthritis of elbow, left, degenerative Chronic pancreatitis Chronic post-traumatic headache, not intractable Diverticulosis of intestine, part unspecified, without perforation or abscess with bleeding History of anxiety History of gastric polyp History of traumatic brain injury Hypothyroidism Insomnia Lateral epicondylitis of left elbow (normal spontaneous vaginal delivery) x3 Severe episode of recurrent major depressive disorder, without psychotic features Surgical History Surgical History History of hysteroscopy 2015, 2021 History of sphincterotomy of sphincter of Oddi Status post laparoscopy 1981,83,92 Status post LEEP (loop electrosurgical excision procedure) of cervix Status post tubal ligation Family History Family History Father Hypertension Cerebrovascular accident Family history of congestive heart failure Other Carcinoma of colon Family history of attention deficit hyperactivity disorder (ADHD) Family history of malignant neoplasm Family history of mental disorder Social History Social History Social History: Smoking status: Never smoker Second hand tobacco smoke exposure: No Alcohol intake: current Substance use: never Substance use type: does not use Living arrangements: with family Occupation/Education: occupation Gender identity (if verbalized by the patient): Female Sexual Orientation (if Verbalized by the Patient): Straight or Heterosexual Spiritual care concerns: No Anes - Eval Final PreProcedure Day of Procedure 02/23/24 07:55 Patient weight: overweight Heart: regular rate and rhythm Lungs: clear to auscultation Airway: Mallampati scale class II Neurological: alert and oriented Last oral intake: >/= 8 hours ASA classification: II Anesthetic plan: proceed Anesthesia type and monitoring: general GIVS and standard monitoring Results Review: All pre-operative results and documents have been reviewed as part of the pre-operative evaluation. Informed Consent: The patient's anesthetic plan and its atte
[2024-02-23] MEDS: KETOROLAC 15 MG/ML VIAL (*BKC) IV PUSH (08:27)
--- NOTE | 2024-02-23 08:31 | W.PM.PROC2 ---
Procedure Note - Detailed Date of Procedure 02/23/24 Pre-op Diagnosis post menopausal bleeding Post-op Diagnosis Same Procedure Performed D&C hysteroscopy Surgeon Ritika Tolliver MD Anesthesia MAC Findings The uterus sounds to 9cm and appears to have a thickened endometrium. The endometrium was very vascular and papillary in appearance. Description of Procedure The patient is taken the operating room and placed under anesthesia in the dorsal lithotomy position. She was prepped and draped in the usual sterile fashion. [place] speculum was placed in the vagina and the cervix grasped on the anterior lip with a tenaculum. The uterus is sounded to 9cm. The diagnostic hysteroscope was placed and with the appearance, the small Aveeta resection device is used to resect the thickened tissue. The hysteroscope was then removed and the sharp OO curette is used to curette the endometrium until a good uterine cry was noted in all areas. All instruments are removed. Sponge, needle, and instrument counts are correct per the OR staff. Patient was awakened from anesthesia and taken to recovery in stable condition. Estimated Blood Loss 5 Drains No Packing No Pathology Yes ( Endometrial shavings and curettings) Complications No immediate complications Condition Stable Disposition PACU
[2024-02-23 08:32] VITALS: BP 139/78; PULSE 82; RESP 14; O2SAT 100
[2024-02-23 09:00] VITALS: BP 122/73; PULSE 80; RESP 14; O2SAT 100
== END 2024-02-23 09:28 | disposition home or self-care (01) ==
PROVIDERS: PCP Family Medicine; Visit Provider Obstetrics & Gynecology Gynecology
PROC: 0U5B8ZZ Destruction of Endometrium, Via Natural or Artificial Opening Endoscopic (ICD-10-PCS; CPT 58563; principal; 2024-02-23 08:15)
DX: N95.0 Postmenopausal bleeding (principal); E03.9 Hypothyroidism, unspecified; F33.2 Major depressive disorder, recurrent severe without psychotic features; F41.9 Anxiety disorder, unspecified; Z87.820 Personal history of traumatic brain injury
CPT/HCPCS: 58558; 88305; A9270; J1885; J2405; J2704; J3010; J7120

== ENCOUNTER 2024-08-21 09:50 | Outpatient (CLI) | payer OTHER, SELFPAY ==
--- NOTE | ~2024-08-21 | MR_ITS ---
EXAMINATION: MR hip RT wo con DATE: 08/21/2024 10:54 INDICATION: Right hip and buttock pain. TECHNIQUE: Magnetic resonance imaging (MRI) of the right hip was performed without intravenous contra st. COMPARISON: Pelvis and right hip radiographs 07/27/2024 FINDINGS: Bones/cartilage: Alignment is normal. No fracture. The femoral head/neck morphologies are normal. The hips demonstrate tiny osteophytes. Small [id number] images of right hip demonstrate partial-thickness cartilage lo ss. Labrum: There is a tear of the right acetabular labrum. Fluid: There are small bilateral hip joint effusions. There is mild bilateral trochanter bursitis. Soft tissues: There is moderate tendinopathy of right hamstring origin. The iliopsoas tendons are normal. There is mild right gluteus minimus tendinopathy. Right gluteus medius tendon is normal. There is a partial te ar of left gluteus minimus tendon. Left gluteus medius tendon is normal. IMPRESSION: 1. Mild right hip chondrosis. 2. Tear of the right acetabular labrum. 3. Small bilateral hip joint effusions. 4. Moderate tendinopathy of right hamstring origin. Reviewed, dictated and finalized at location [facility]. [employer]
== END 2024-08-21 09:51 | disposition home or self-care (01) ==
PROVIDERS: PCP Family Medicine; Visit Provider Nurse Practitioner Family
DX: S76.311A Strain of muscle, fascia and tendon of the posterior muscle group at thigh level, right thigh, initial encounter (principal); S73.191A Other sprain of right hip, initial encounter; M94.251 Chondromalacia, right hip; M25.452 Effusion, left hip; M25.451 Effusion, right hip; X58.XXXA Exposure to other specified factors, initial encounter
CPT/HCPCS: 73721

== ENCOUNTER 2024-09-28 16:47 | Outpatient (CLI) | payer OTHER, SELFPAY ==
--- NOTE | ~2024-09-28 | XR_ITS ---
CHEST RADIOGRAPH, PA AND LATERAL CLINICAL HISTORY: R05.9 - Cough, unspecified . COMPARISON: 08/13/2023 TECHNIQUE: PA and lateral views of the chest. FINDINGS The cardiomediastinal silhouette is unremarkable. The lungs are clear. Visualized osseous structures and soft tissues are unremarkable. IMPRESSION: No focal infiltrate or effusion. Reviewed, dictated and finalized at location A. VIORAL INSTRUCTOR
--- OUTSIDE RECORDS SUMMARY | 2024-09-28 16:53 | XMS_ITS | Encounter Summary ---
Author Organization [facility] Address [address] [place] [address] Care Team Providers Care Unit Assistant Name Role Phone Kalen Null MD Primary Care Provider [phone] Encounter Details Date Type Department Care Team (Late st Contact Info) Description 01/17/2023 Lab Requisition [facility] D[facility] Lab [address] [place] [address] Mele Wallace MD [address] [place] [address] Social History Tobacco Use Types Packs/Day Years Used Date Smoking Tobacco: Never Smokeless Tobacco: Never Alcohol Use Standard Drinks/Week Comments No 0 (1 standard drink = 0.6 oz pur e alcohol) socially Sex and Gender Information Value Date Recorded Sex Assigned at Not on file Gender Identity Not on file Sexual Orientation Not on file documented as of this encounter Plan of Treatment Not on file documented as of this encounter Procedures Procedure Name Priority Date/Time Associated Diagnosis Comments DERMATOPATHOLOGY Routine 01/16/2023 12:0 0 AM CDT documented in this encounter Results * DERMATOPATHOLOGY (01/16/2023 12:00 AM CDT) Case Report Dermatopathology Report ? Case: [id number] ? Authorizing Provider: ??Mele Wallace MD ?Collected: ? 01/16/2023 12:00 AM ? Ordering Location: ? [facility] ? Received: ?01/17/2023 07:19 AM ? Pathologist: ? Miroslava Dixon, ? MD ? Specimen: ?Skin, left mid chest ? 3 5:49 PM CDT DERMATOPATHOLOGY LABORATORY Final Diagnosis Specimen A. SKIN, left mid chest: INTRADERMAL MELANOCYTIC NEVUS (D22.5) 3 5:49 PM CDT DERMATOPATHOLOGY LABORATORY Clinical History [facility] Path#[id number] 3 5:49 PM CDT DERMATOPATHOLOGY LABORATORY Gross Description Specimen A: Received is one formalin filled container labeled with the patient's name and designated left mid chest. The specimen consists of a shave biopsy measuring 5x4x2 mm. Jar 0. 3 5:49 PM CDT DERMATOPATHOLOGY LABORATORY Microscopic Description Specimen A. SKIN, left mid chest: There are nests of cytologically bland melanocytes within the dermis that mature with depth. 3 5:49 PM CDT DERMATOPATHOLOGY LABORATORY Disclaimer An external and internal positive and negative controls are appropriate for the histochemical, immunohistochemical and immunofluorescence stain(s) in this case (if any), except where stated explicitly. The performance characteristics of the stain(s) cited in this report were developed and its performance characteristic determined by the Dermatopathology Laboratory at [facility], directed by Dr. Javy Echevarria. These tests need not be, and therefore are not, approved by the [place] Food and Drug Administration. The tests are used for clinical purposes. Billing Codes Specimen Charges Stain Charges 20184 1 3 5:49 PM CDT DERMATOPATHOLOGY LABORATORY Embedded Images 3 5:49 PM CDT DERMATOPATHOLOGY LABORATORY Pathology/Cytolog y TISSUE SPECIMEN FROM SKIN / Unknown 01/16/2023 01/17/2023 7:19 AM CDT Mele Wallace MD LAB - PATHOLOGY/CYTO LOGY ORDERABLES DERMATOPATHOLOGY LABORATORY [facility] - Department of Dermatology [address], [address] [phone] documented in this encounter Visit Diagnoses Not on filedocumented in this encounter Care Teams Unit Assistant Relationship Specialty Start Date End Date Kalen Null MD [address] [address] [address] [place] [address] PCP - General Family Medicine 03/18/19 documented as of this encounter
--- OUTSIDE RECORDS SUMMARY | 2024-09-28 16:53 | XMS_ITS | Encounter Summary ---
Author Organization [facility] Address [address] [place] [address]. [place] [address] [place] [address] Care Team Providers Care Skilled Nursing Case Manager Name Role Phone None, Provider Primary Care Provider Kalen Castañeda MD Primary Care Provider [phone] Encounter Details Date Type Department Care Team (Late st Contact Info) Description 04/05/2014 Abstract [facility] CONVERSION [address] [place], [place] [id number] , Generic Conversion, Social History Tobacco Use Types Packs/Day Years Used Date Smoking Tobacco: Never Assessed Comments Unknown Sex and Gender Information Value Date Recorded Sex Assigned at Not on file Legal Sex Female 11:30 PM CDT Gender Identity Not on file Sexual Orientation Not on file documented as of this encounter Plan of Treatment Not on file documented as of this encounter Visit Diagnoses Not on filedocumented in this encounter Care Teams Skilled Nursing Case Manager Relationship Specialty Start Date End Date None, Provider, PCP - General UNKNOWN PHYSICIAN SPECIALTY 08/16/22 Kalen Null MD [address] [facility] [place] [address] PCP - General 10/07/22 documented as of this encounter
--- OUTSIDE RECORDS SUMMARY | 2024-09-28 16:53 | XMS_ITS | Continuity of Care Document ---
Author Organization [facility] Address [address] [facility] [address] [place] [address] Phone Care Team Providers Care Counterintelligence Analyst Name Role Phone Angela Michaud OD Unavailable Unavailable Allergies, Adverse Reactions, Alerts Substance Reaction Status Criticality No Known Allergies Active No Inform ation Medications Medication Instructions Dosage Effective Dates (start - stop) Status Comments trazodone 50 mg tablet - Act edy duloxetine 60 mg capsule,delayed release - Active pantoprazole 40 mg tablet,delayed release TAKE 1 TABLET BY MOUTH EVERY DAY - Active medroxyprogesterone 10 mg tablet - Active levothyroxine 25 mcg tablet - Active estradiol 1 mg tablet - Acti ve Procedures Procedure Date POSTOP FOLLOW-UP VISIT POSTOP FOLLOW-UP VISIT POSTOP FOLLOW-UP VISIT CATARACT SURG W/IOL, 1 STAGE OFFICE/OUTPATIENT VISIT, EST OPHTHALMIC BIOMETRY RT [facility] IMPRIMIS OFFICE/OUTPATIENT VISIT, EST POSTOP FOLLOW-UP VISIT AFTER CATARACT LASER SURGERY OFFICE/OUTPATIENT VISIT, NEW OPHTHALMIC BIOMETRY RT Advance Directives Directive Yes / No Effective Date File Name No Information Encounters Encounter Description Practice Location Reason(s) For Visit Diagnoses Date Provider Providers Copied on Encounter [facility], [address] [facility] [address], [place], [place], [id number], [place] tel:[phone] [facility] Post-Op (chief complaint) Presence of intraocular lens 3 Jaswant Angela. [address] [facility], [address], [place], [address], [place]. tel:[phone] Referring Provider: Kalen Falk, [address] [place], [address]. tel:[phone] [facility], [address] [facility] [address], [place], [place], [id number], [place] tel:[phone] [facility]ULT [facility] Post-Op (chief complaint) Presence of intraocular lens 3 Michaudxuan Miller. [address] [facility] [address], [address], [place], [address], [place]. tel:[phone] Referring Provider: Kalen Falk, [address] [place], [address]. tel:[phone] [facility], [address] [facility] [address], [place], [place], [id number], [place] tel:[phone] [facility] Post-Op (chief complaint) No Information 3 Derheimer OD Gris. [address] [facility] [address], [place], [place], [id number], [place]. tel:[phone] Referring Provider: Kalen Falk, [address] [place], [address]. tel:[phone] [facility], [address] [facility] [address], [place], [place], [id number], [place] tel:[phone] [facility] No Information 3 Jasper Evans. [address] [place], [address], [place]. tel:[phone] Referring Provider: Kalen Falk, [address] [place], [address]. tel:[phone] OFFICE/OUTPA TIENT VISIT, [facility], [address] [place] [address], [id number], [place] tel:[phone] OPH CON[facility]ULT [facility] blurry vision (chief complaint) Age-related nuclear cataract, right eyeDry eye syndrome of bilateral lacrimal glandsS/P LASIK surgeryPresenc e of intraocular lens 3 Jasper Evans. [facility] [facility], [place], [address], [place]. tel:[phone] Referring Provider: Kalen Falk, [address] [place] [address], [address]. tel:[phone] OFFICE/OUTPA TIENT VISIT, [facility], [address] [place] [address], [id number], [place] tel:[phone] [facility] CON[facility]ULT [facility] blurry vision (chief complaint) Age-related nuclear cataract, right eyeDry eye syndrome of bilateral lacrimal glandsPresence of intraocular lens 3 Jasper Evans. [facility] [facility], [place], [address], [place]. tel:[phone] Referring Provider: Kalen Falk, [address] [place], [address]. tel:[phone] [facility], [address] [place] [address], [id number], [place] tel:[phone] [facility] post op (chief complaint) Other secondary cataract, left eye 3 Jasper Nathan [facility], [place], [address], [place]. tel:[phone] Referring Provider: Kalen Falk, [address] [place], [address]. tel:[phone] [facility], [address] [place] [address], [id number], [place] tel:[phone] [facility] No Information 3 Jasper Negretey S Enio [facility], [place], [address], [place]. tel:[phone] Referring Provider: Kalen Falk, [address] [place] [address], [address]. tel:[phone] OFFICE/OUTPA TIENT VISIT, NEW [facility], [address] [address], [place], [place], [id number], [place] tel:[phone] OPH CON[facility]ULT [facility] blurry vision (chief complaint) Age-related nuclear cataract, right eyeOther secondary cataract, left eyeDry eye syndrome of bilateral lacrimal glandsS/P LASIK surgery 3 Jasper Nathan. [address] [facility], [place], [address], [place]. tel:[phone] Referring Provider: Kalen Falk, [address] [place] [address], [address]. tel:[phone] Family History Family Member Type Diagnosis Age At Onset Problem No family history of Glaucom a Problem No family history of Macular degeneration Payers Payer name Insurance type Covered green party ID Authoriza tion(s) No Information Social History Type Description Quantity Date Captured Comments Sex Female Smoking Status No Information Chief Complaint And Reason For Visit From encounter dated '05/20/2023 13:50'. Post-Op (chief complaint). Description: Additional information: 1 month PO STD Distance +ORA H/O LASIKOS done 08/[address]Finished with Gtt[facility].Patient states vision OD is good. Plan Of Treatment Date Type Action Status No Information History Of Present Illness Encounter Date Complaint History Of Prese nt Illness Post-Op Additional infor mation: 1 month PO STD Distance +ORA H/O LASIKOS done 08/[address]Finished with Gtts.Patient states vision OD is good. Post-Op Additional infor mation: Pt states her VA is fine. She denies pain/discomfort.STD Distance w/ORAh/o Lasik. Post-Op Additional infor mation: 1 day PO OD STD Distance +ORA h/o LasikOS was done 08/2022 at [facility]/ CT fixed OS 08/29/22 Pred Moxi Brom OD TID, AT's PRN Patient states vision OD is much better, denies pain. OS vision is like smudge in vision still. blurry vision The 57 year old female presents for evaluation of blurry vision in the right eye. It started about 2 month(s) ago. It occurs all the time. It affects distance vision. Pt presents for a cataract evaluation, OD. Having better vision OS however does have irregular band in vision. Not currently with glasses. Glare OD blurry vision The 57 year old female presents for evaluation of blurry vision in the left eye. Patient states that the left eye still seems like it has a film over itS/P PCIOL OS by [facility], then fragment removal by CT s/p Yag Cap Ct post op The 57 year old female presents for 2 week post op OS YAG PC. OS vision is better than it was but still not clear. Sometimes seeing a little bit of double. Wonders what is normal. No pain or discomfort OU. Uses At's PRN OU. Seeing some vertical double OD VA and OS VAs/p CEIOL OSs/p Myopic Lasik OU blurry vision The 57 year old female presents for evaluation of blurry vision OU. Patient had cataract surgery on the left eye in August at [facility]. Had pain and nausea, high eye pressure on her post op visit, says it was 44. Her original forest ecologist went our of town and was unable to see her. She had to have surgery again two day later because she said that the cataract was only half removed says it was done with Dr. Hutchinson. The vision has been blurry since the surgery, having a hard time focusing, sometimes the vision is doubled. Vision with the right eye is blurry, patient is apprehensive about doing any surgery because of what happened with the left. 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 Impression/Plan Related to Age-r elated nuclear cataract, right eye Impression/Plan Related to Dry e ye syndrome of bilateral lacrimal glands Impression/Plan Related to S/P L ASIK surgery Impression/Plan Related to Prese nce of intraocular lens Impression/Plan Related to Age-r elated nuclear cataract, right eye Impression/Plan Related to Prese nce of intraocular lens Impression/Plan Related to Dry e ye syndrome of bilateral lacrimal glands Impression/Plan Related to Other secondary cataract, left eye Impression/Plan Related to Age-r elated nuclear cataract, right eye Impression/Plan Related to Other secondary cataract, left eye Impression/Plan Related to Dry e ye syndrome of bilateral lacrimal glands Impression/Plan Related to S/P L ASIK surgery Assessments Type Assessment Date assessment Presence of intraocular lens May
--- OUTSIDE RECORDS SUMMARY | 2024-09-28 16:53 | XMS_ITS | Clinical Summary ---
Author Organization [facility] [employer] Address [address] [place] [address] Care Team Providers Care Special Education Teachers Name Role Phone Kalen Null MD Primary Care Provider [phone] Source Comments [facility],non-owned Affiliates and Associated Physician Practices is amultiple site organization consisting of ambulatory clinics and hospital sitesin [place], [place], [place] and [place]. This disclosure is being madepursuant to the Care Everywhere program and may not contain all information available regarding this patient. Last updated 18.[facility] [facility] Allergies No known active allergies Medications * Be aware that medications may not be up to date on this document. Alwaysverify current medications with the patient. Medication Sig Dispensed Refills Start Date End Date Status DULoxetine (CYMBALTA) 60 MG capsule Take 60 mg by mouth once daily Active traZODone (DESYREL) 50 MG tablet Take 50 mg by mouth at bedtime Active levothyroxine (SYNTHROID) 50 MCG tablet Active vilazodone (VIIBRYD) 10 MG tablet Active sucralfate (CARAFATE) 1 GM tablet Take 1 tablet by mouth 4 times daily - before meals & nightly 120 tablet 03/18/2019 Active Additional Information Patient not taking.Reported on 02/15/2021 Immunizations Name Administration Dates Next Due HEP A VACCINE, ADULT 06/29/2016 Social History Tobacco Use Types Packs/Day Years Used Date Smoking Tobacco: Never Smokeless Tobacco: Never Alcohol Use Standard Drinks/Week Comments No 0 (1 standard drink = 0.6 oz pur e alcohol) socially Sex and Gender Information Value Date Recorded Sex Assigned at Not on file Gender Identity Not on file Sexual Orientation Not on file Last Filed Vital Signs Vital Sign Reading Time Taken Comments Blood Pressure 122/76 02/15/2021 12:00 PM CDT Pulse 78 02/15/2021 12:00 PM CDT Temperature 36.3 ??C (97.4 ??F) 03/18/2019 9:10 AM CD T Respiratory Rate 20 02/15/2021 12:00 PM CDT Oxygen Saturation 98% 02/15/2021 12:00 PM CDT Inhaled Oxygen Concentration 21% 03/18/2019 9 :10 AM CDT Weight 83.5 kg (184 lb) 02/15/2021 12:00 PM CDT Height 170.2 cm (5' 7 ) 02/15/2021 12:00 PM CDT Body Mass Index 28.82 02/15/2021 12:00 PM CDT Plan of Treatment Health Maintenance Due Date Last Done Comments COLOGUARD (AGES 45-75) - COL ON CA SCREENING 1964 COLON MONITORING 1964 COLONOSCOPY - COLON CA SCREENING 1964 CT COLONOGRAPHY - COLON CA SCREENING 1964 Colorectal Cancer Screening 1964 FIT - COLON CA SCREENING 1964 FLEX SIG - COLON CA SCREENING 1964 LIPID TESTING 1964 MAMMOGRAM 1964 PAP SMEAR 1964 HIV SCREENING 1979 HEPATITIS C SCREENING 05/12/1982 DTAP/TDAP/TD VACCINES (1 - Tdap) 1983 PNEUMOCOCCAL VACCINE 50+ (1 of 1 - PCV) 2014 ZOSTER VACCINE (1 of 2) 2014 SCREENING FOR DIABETES 03/18/2022 9, 03/18/2019 COVID-19 VACCINE ( - 2023-2 5 season) 2024 INFLUENZA VACCINE (#1) 2024 DEPRESSION SCREENING 09/01/2024 Respiratory Syncytial Virus (RSV) Vaccine Pt: or over 60 yrs (1 - 1-dose 75+ series) 2039 HEPATITIS B VACCINE Aged Out No longe r eligible based on patient's age to complete this topic HIB VACCINE Aged Out No longer eligi ble based on patient's age to complete this topic HPV VACCINE Aged Out No longer eligi ble based on patient's age to complete this topic MENINGOCOCCAL (Group B) VACCINE Aged Out No longer eligible b ased on patient's age to complete this topic MENINGOCOCCAL VACCINE Aged Out No nabor zenon eligible based on patient's age to complete this topic PNEUMOCOCCAL VACCINE Aged Out No long er eligible based on patient's age to complete this topic Procedures Procedure Name Priority Date/Time Associated Diagnosis Comments COMPREHENSIVE METABOLIC PANEL STAT 03/18/2019 8:30 AM CDT from Last 3 Months or Most Recently Relevant to Health Maintenance Results * (ABNORMAL) COMPREHENSIVE METABOLIC PANEL (03/18/2019 8:30 AM CDT) Glucose 93 70 - 105 mg/dL 03/18/2019 8:58 AM T [facility] Sodium 142 136 - 145 mmol/L 03/18/2019 8:58 AM [facility] Potassium 4.3 3.5 - 5.1 mmol/L 03/18/2019 8:58 AM [facility] Chloride 110(H) 98 - 107 mmol/L 03/18/2019 8:58 AM [facility] CO2 18(L) 22 - 29 mmol/L 03/18/2019 8:58 AM [facility] Calcium 10.19 9.08 - 10.48 mg/dL 03/18/2019 8:58 AM [facility] Anion Gap 14 5 - 20 mmol/L 03/18/2019 8:58 AM T [facility] BUN 20.0(H) 5.3 - 18.7 mg/dL 03/18/2019 8:58 AM [facility] Creatinine 0.93 0.61 - 1.07 mg/dL 03/18/2019 8:58 AM [facility] Alkaline Phosphatase 78 39 - 139 U/L 03/18/2019 8:58 AM [facility] ALT 17 8 - 65 U/L 03/18/2019 8:58 AM T [facility] AST 22 8 - 42 U/L 03/18/2019 8:58 AM [facility] Protein Total 7.9 6.3 - 8.2 gm/dL 03/18/2019 8:58 AM [facility] Albumin 4.2 3.3 - 4.9 gm/dL 03/18/2019 8:58 AM [facility] Bilirubin Total 0.2(L) 0.3 - 1.2 mg/dL 03/18/2019 8:58 AM CDT [facility] eGFR by MDRD >60 >60 mL/min/1.7 3m2 03/18/2019 8:58 AM CDT [facility] eGFR by MDRD >60 >60 mL/min/1.7 3m2 03/18/2019 8:58 AM CDT [facility] Blood BLOOD SPECIMEN / Unknown Venipuncture / Unknown 03/18/2019 8:30 AM CDT 03/18/2019 8:41 AM CDT Dilip Garcia MD LAB - CHEMISTRY ORDERABLES [facility] [address] [place] [address] from Last 3 Months or Most Recently Relevant to Health Maintenance Care Teams Special Education Teachers Relationship Specialty Start Date End Date Kalen Null MD [address] [place] [address] PCP - General Family Medicine 03/18/19
--- OUTSIDE RECORDS SUMMARY | 2024-09-28 16:53 | XMS_ITS | Continuity of Care Document ---
Author Name [facility] Address [address] [place] [address] Organization [facility] Care Team Providers Care Police Officer Booking Name Role Phone [facility] Unavailable Unavailable Problems Problem Status Onset Date Problem Type Date of Resolution Comme nts Source Nausea and vomiting (disorder) Diagnosis Exposure to 2019 novel coronavirus Diagnosis Other malaise Active Diagnosis Allergies, Adverse Reactions, Alerts Substance Category Reaction Severity Reaction type Status Date Reported Comments Source gabapentin Assertion Drug allergy Active [facility]
--- OUTSIDE RECORDS SUMMARY | 2024-09-28 16:53 | XMS_ITS | Referral Summary ---
Author Organization [facility] Address [address] [place] [address] Care Team Providers Care Health Informatics Advisor Name Role Phone Kalen Null MD Primary Care Provider [phone] Source Comments [facility],non-owned Affiliates and Associated Physician Practices is amultiple site organization consisting of ambulatory clinics and hospital sitesin [place], [place], [place] and [place]. This disclosure is being madepursuant to the Care Everywhere program and may not contain all information available regarding this patient. Last updated 18.[facility] Allergies No known active allergies Medications * [...] 02/15/2021 12:00 PM CDT Plan of Treatment Not on file Procedures Procedure Name Priority Date/Time Associated Diagnosis Comments COMPREHENSIVE METABOLIC PANEL STAT 03/18/2019 8:30 AM CDT from Last 3 Months or Most Recently Relevant to Health Maintenance Results * (ABNORMAL) COMPREHENSIVE METABOLIC PANEL (03/18/2019 8:30 AM CDT) Glucose 93 70 - 105 mg/dL 03/18/2019 8:58 AM T [facility] Sodium 142 136 - 145 mmol/L 03/18/2019 8:58 AM T [facility] Potassium 4.3 3.5 - 5.1 mmol/L 03/18/2019 8:58 AM T [facility] Chloride 110(H) 98 - 107 mmol/L 03/18/2019 8:58 AM T [facility] CO2 18(L) 22 - 29 mmol/L 03/18/2019 8:58 AM T [facility] Calcium 10.19 9.08 - 10.48 mg/dL 03/18/2019 8:58 AM T [facility] Anion Gap 14 5 - 20 mmol/L 03/18/2019 8:58 AM T [facility] BUN 20.0(H) 5.3 - 18.7 mg/dL 03/18/2019 8:58 AM T [facility] Creatinine 0.93 0.61 - 1.07 mg/dL 03/18/2019 8:58 AM T [facility] Alkaline Phosphatase 78 39 - 139 U/L 03/18/2019 8:58 AM CDT [facility] ALT 17 8 - 65 U/L 03/18/2019 8:58 AM T [facility] AST 22 8 - 42 U/L 03/18/2019 8:58 AM T [facility] Protein Total 7.9 6.3 - 8.2 gm/dL 03/18/2019 8:58 AM T [facility] Albumin 4.2 3.3 - 4.9 gm/dL 03/18/2019 8:58 AM T [facility] Bilirubin Total 0.2(L) 0.3 - 1.2 mg/dL 03/18/2019 8:58 AM T [facility] eGFR by MDRD >60 >60 mL/min/1.7 2 03/18/2019 8:58 AM T [facility] eGFR by MDRD >60 >60 mL/min/1.7 2 03/18/2019 8:58 AM T [facility] Blood BLOOD SPECIMEN / Unknown Venipuncture / Unknown 03/18/2019 8:30 AM CDT 03/18/2019 8:41 AM CDT Dilip Garcia MD LAB - CHEMISTRY ORDERABLES Performing Organization Address City/State/[facility] Co de Phone Number [facility] [address] [place] [address] from Last 3 Months or Most Recently Relevant to Health Maintenance Care Teams Health Informatics Advisor Relationship Specialty Start Date End Date Kalen Null MD [address] [place] [address] PCP - General Family Medicine 03/18/19
--- OUTSIDE RECORDS SUMMARY | 2024-09-28 16:53 | XMS_ITS | Patient Health Summary ---
Author Organization [facility] Address [address] [place] [address] Care Team Providers Care Paragliding Instructor Name Role Phone Kalen Null MD Primary Care Provider [phone] Note from [facility],non-owned Affiliates and Associated Physician Practices is amultiple site organization consisting of ambulatory clinics and hospital sitesin [place], [place], [place] and [place]. This disclosure is being madepursuant to the Care Everywhere program and may not contain all information available regarding this patient. Last updated 18.[facility] Allergies No known active allergies Medications * Be aware that medications may not be up to date on this document. Alwaysverify current medications with the patient. * DULoxetine (CYMBALTA) 60 MG capsule Take 60 mg by mouth once daily * traZODone (DESYREL) 50 MG tablet Take 50 mg by mouth at bedtime * levothyroxine (SYNTHROID) 50 MCG tablet * vilazodone (VIIBRYD) 10 MG tablet * sucralfate (CARAFATE) 1 GM tablet(Started 03/18/2019) Take 1 tablet by mouth 4 times daily - before meals & nightly Immunizations * HEP A VACCINE, ADULT(Given 06/29/2016) Social History Tobacco Use Types Packs/Day Years [...] Mass Index 28.82 02/15/2021 12:00 PM CDT Procedures * DERMATOPATHOLOGY(Performed 01/16/2023) * CARDIAC EKG ORDER(Performed 06/23/2019) * CARDIAC EKG ORDER(Performed 06/17/2019) * ED CRITICAL CARE(Performed 03/18/2019) Performed for Chest pain, unspecified type * EKG 12-LEAD(Performed 03/18/2019) Performed for Other chest pain * CALCIUM IONIZED WHOLE BLOOD(Performed 03/18/2019) * TROPONIN I(Performed 03/18/2019) * XR CHEST 1VW PORTABLE(Performed 03/18/2019) Performed for Other chest pain * URINALYSIS REFLEX TO MICROSCOPIC NO CULTURE(Performed 03/18/2019) * HCG URINE QUALITATIVE(Performed 03/18/2019) * ABO TYPE: RETYPE-PATIENT RESULT ONLY(Performed 03/18/2019) * T4 FREE(Performed 03/18/2019) * LIPASE BLOOD(Performed 03/18/2019) * COMPREHENSIVE METABOLIC PANEL(Performed 03/18/2019) * TYPE + SCREEN PANEL(Performed 03/18/2019) * CT ANGIO AORTA FOR DISSECTION(Performed 03/18/2019) Performed for Other chest pain * TSH(Performed 03/18/2019) * TROPONIN I(Performed 03/18/2019) * CBC W AUTO DIFFERENTIAL(Performed 03/18/2019) * EKG 12-LEAD(Performed 03/18/2019) Performed for Other chest pain * XR CHEST 1VW(Performed 03/18/2019) Performed for Chest pain, unspecified type * EKG 15-LEAD(Performed 03/18/2019) Performed for Chest pain, unspecified type * PT PTT PANEL(Performed 03/18/2019) * D-DIMER(Performed 03/18/2019) * TROPONIN I(Performed 03/18/2019) * CK ISOENZYMES PANEL(Performed 03/18/2019) * COMPREHENSIVE METABOLIC PANEL(Performed 03/18/2019) * CBC W AUTO DIFFERENTIAL(Performed 03/18/2019) * LAB HISTORICAL RESULTS-ONBASE(Performed 01/11/2015) * LAB HISTORICAL RESULTS-ONBASE(Performed 01/11/2015) * LAB HISTORICAL RESULTS-ONBASE(Performed 01/11/2015) * LAB HISTORICAL RESULTS-ONBASE(Performed 09/05/2014) * LAB HISTORICAL RESULTS-ONBASE(Performed 09/05/2014) * LAB HISTORICAL RESULTS-ONBASE(Performed 09/05/2014) * LAB HISTORICAL RESULTS-ONBASE(Performed 09/05/2014) * LAB HISTORICAL RESULTS-ONBASE(Performed 09/05/2014) * LAB HISTORICAL RESULTS-ONBASE(Performed 09/05/2014) Results * DERMATOPATHOLOGY (01/16/2023 12:00 AM CDT) Case Report Dermatopathology Report ? Case: [id number] ? Authorizing Provider: ??Mele Wallace MD ?Collected: ? 01/16/2023 12:00 AM ? Ordering Location: ? [facility] DermPath Lab ? Received: ?01/17/2023 07:19 AM ? Pathologist: ? Miroslava Dixon, ? MD ? Specimen: ?Skin, left mid chest ? 3 5:49 PM CDT DERMATOPATHOLOGY LABORATORY Final Diagnosis Specimen A. SKIN, left mid chest: INTRADERMAL MELANOCYTIC NEVUS (D22.5) 3 5:49 PM CDT DERMATOPATHOLOGY LABORATORY Clinical History Nevus Path#[id number] 3 5:49 PM CDT DERMATOPATHOLOGY LABORATORY Gross [...] characteristic determined by the Dermatopathology Laboratory at [facility], directed by Dr. Javy Echevarria. These tests need not be, and therefore are not, approved by the [place] Food and Drug Administration. The tests are used for clinical purposes. Billing Codes Specimen Charges Stain Charges 67594 1 3 5:49 PM CDT DERMATOPATHOLOGY LABORATORY Embedded Images 3 5:49 PM CDT DERMATOPATHOLOGY LABORATORY Pathology/Cytolog y TISSUE SPECIMEN FROM SKIN / Unknown 01/16/2023 01/17/2023 7:19 AM CDT Mele Wallace MD LAB - PATHOLOGY/CYTO LOGY ORDERABLES DERMATOPATHOLOGY LABORATORY [facility] Department of Dermatology [address], [address] [phone] * CARDIAC EKG ORDER (06/23/2019 1:54 PM CDT) Only the most recent of2 resultswithin the time period is included. Narrative 06/23/2019 1:54 PM CDT Ordered by an unspecified provider. Scanned Document CARDIAC SERVICES ORD ERABLES * ED CRITICAL CARE (03/18/2019 3:48 PM CDT) Narrative Basil Coto MD - 03/18/2019 3:48 PM CDT Basil Coto MD ? 03/18/2019 ??3:48 PM Critical Care Performed by: BASIL COTO Authorized by: BASIL COTO Critical care provider statement: ??Critical care time (minutes): ??35 ??Critical care was necessary to treat or prevent imminent or life-threatening deterioration of the following conditions: ??Cardiac failure and circulatory failure ??Critical care was time spent personally by me on the following activities: ??Development of treatment plan with patient or surrogate, discussions with consultants, evaluation of patient's response to treatment, examination of patient, re-evaluation of patient's condition, pulse oximetry, ordering and review of radiographic studies, ordering and review of laboratory studies and ordering and performing treatments and interventions Basil Coto MD PROCEDURE/MINOR SURG ICAL ORDERABLES * EKG 12-LEAD (03/18/2019 12:29 PM CDT) Only the most recent of2 resultswithin the time period is included. Ventricular Rate 77 BPM [facility] MUSE Atrial Rate 77 BPM [facility] M[facility] P-R Interval 130 ms [facility] QRS Duration ms 76 ms [facility] Q-T Interval ms 368 ms [facility] QTC Calculation (Bezet) 416 ms [facility] M[facility] Calculated P Purvis 46 degrees [facility] MUSE Calculated R Purvis 33 degrees [facility]USE Calculated T Purvis 36 degrees [facility] M[facility] Interpretation EKG NORMAL SINUS RHYTHM NORMAL ECG WHEN COMPARED WITH ECG OF 18-MAR-2019 09:15, Confirmed by Mitchell Porras ([id number]), newspaper photo editor Abrahan Nogueira ([id number]) on 04/16/2019 5:06:20 PM [facility] M[facility] 03/18/2019 12:2 9 PM CDT 04/16/2019 5:06 PM CDT Jimmie Leonard III, MD ECG ORDERABLES Performing Organization Address City/[facility]/ZIP Co de Phone Number [facility] * (ABNORMAL) CALCIUM IONIZED WHOLE BLOOD (03/18/2019 12:00 PM CDT) Ionized Calcium Whole Blood 1.22 mmol/L 03/18/2019 12:10 PM CDT [facility] Adjusted Ionized Calcium 1.17(L) 1.19 - 1.34 mmol/L 03/18/2019 12:10 PM CDT [facility] pH Whole Blood 7.30(L) 7.35 - 7.45 03/18/2019 12:10 PM CDT [facility] Whole Blood WHOLE BLOOD SPECIMEN / Unknown Venipuncture / Unknown 03/18/2019 12:00 PM CDT 03/18/2019 12:08 PM CDT Jimmie Leonard III, MD LAB - CHEMISTR Y ORDERABLES [address] [phone] * TROPONIN I (03/18/2019 12:00 PM CDT) Only the most recent of3 resultswithin the time period is included. Troponin I <0.010 <0.032 ng/mL 03/18/2019 12:33 PM CDT [facility] Blood BLOOD SPECIMEN / Unknown Venipuncture / Unknown 03/18/2019 12:00 PM CDT 03/18/2019 12:08 PM CDT Jimmie Leonard III, MD LAB - CHEMISTR Y ORDERABLES [address] [place] [address], [facility] [place] [phone] * XR CHEST 1VW PORTABLE (03/18/2019 11:13 AM CDT) Anatomical Region Laterality Modality Chest Radiographic Katy ging 03/18/2019 11:1 4 AM CDT Impressions 03/18/2019 3:11 PM CDT IMPRESSION: No acute pulmonary process. Dictated by Sanna Jacobson MD (vice president of manufacturing). This report was approved ??by Sanna Jacobosn ?? on 03/18/2019 11:[address] KIERAN lBackburn M.D. have personally reviewed and interpreted this examination/study. This report was electronically signed by KIERAN MCMULLEN M.D. ??on 03/18/2019 3:11 PM . Narrative 03/18/2019 3:11 PM CDT ORDER DATE: 03/18/2019 11:14 AM EXAMINATION: XR CHEST 1VW PORTABLE HISTORY: chest pain COMPARISON: none FINDINGS: There is no focal consolidation, pleural effusion, or pneumothorax. The cardiomediastinal silhouette is normal. The visible bony thorax is intact. Procedure Note Kieran Mcmullen MD - 03/18/2019 ORDER DATE: 03/18/2019 11:14 AM EXAMINATION: XR CHEST 1VW PORTABLE HISTORY: chest pain COMPARISON: none FINDINGS: There is no focal consolidation, pleural effusion, or pneumothorax. The cardiomediastinal silhouette is normal. The visible bony thorax isintact. IMPRESSION: No acute pulmonary process. Dictated by Sanna Jacobson MD (vice president of manufacturing). This report was approved by Sanna Jacobson on 03/18/2019 11:[address] KIERAN Blackburn M.D. have personally reviewed and interpretedthis examination/study. This report was electronically signed by KIERAN MCMULLEN M.D. on 03/18/2019 3:11 PM . Jimmie Leonard III, MD DIAGNOSTIC KATY GING ORDERABLES * (ABNORMAL) URINALYSIS REFLEX TO MICROSCOPIC NO CULTURE (03/18/2019 10:20 AM [facility]) Color UA Yellow Straw, Yellow, Colorless 03/18/2019 10:38 AM [facility] Clarity UA Clear Clear, t Cloudy 03/18/2019 10:38 AM [facility] Specific [place] UA 1.053(H) 1.005 - 1.030 03/18/2019 10:38 AM [facility] pH UA 5.0 5.0 - 8.0 pH 03/18/2019 10:38 AM [facility] Protein UA Negative Negative mg/dL 03/18/2019 10:38 AM [facility] Glucose UA Negative Negative mg/dL 03/18/2019 10:38 AM [facility] Ketone UA Negative Negative mg/dL 03/18/2019 10:38 AM [facility] Bilirubin UA Negative Negative mg/dL 03/18/2019 10:38 AM [facility] Blood UA Negative Negative 03/18/2019 10:38 AM [facility] Nitrite UA Negative Negative 03/18/2019 10:38 AM [facility] Leukocyte Esterase Negative Negative 03/18/2019 10:38 AM [facility] Urobilinogen UA Negative Negative mg/dL 03/18/2019 10:38 AM [facility] RBC UA None Seen None Seen, 0-2, 3-5 /HPF 03/18/2019 10:38 AM [facility] WBC UA 0-5 None Seen, 0-5 /HPF 03/18/2019 10:38 AM [facility] Bacteria UA Trace None, Trace /HPF 03/18/2019 10:38 AM [facility] Squamous Epithelial Cells UA 0-2 None Seen, 0-2 /HPF 03/18/2019 10:38 AM [facility] Urine URINE SPECIMEN OBTAINED BY CLEAN CATCH PROCEDURE / Unknown 03/18/2019 10:20 AM CDT 03/18/2019 10:22 AM CDT Jimmie Leonard III, MD LAB - URINALYS IS ORDERABLES [address] [phone] * HCG URINE QUALITATIVE (03/18/2019 10:20 AM CDT) Pathologist [facility] Test Urine Negative Negative 03/18/2019 10:40 AM CDT [facility] Urine URINE / Unknown Collection / Unknown 03/18/2019 10:20 AM CDT 03/18/2019 10:22 AM CDT Jimmie Leonard III, MD LAB - URINALYS IS ORDERABLES Performing Organization Address City/[facility] Co de Phone Number [address] [phone] * RETYPE PATIENT (03/18/2019 10:03 AM CDT) [facility] ABO 03/18/2019 11:30 AM CDT [facility] Rh Type 03/18/2019 11:30 AM CDT [facility] Typem 03/18/2019 11:30 AM CDT [facility] Interpretation 03/18/2019 11:30 AM CDT [facility] Blood BLOOD SPECIMEN / Unknown 03/18/2019 10:03 AM CDT 03/18/2019 10:11 AM CDT Narrative [facility] - 03/18/2019 11:30 AM CDT Re-type confirmed per [facility] Blood Bank policies & procedures. Results documented in department. Mariusz Rios MD LAB - BLOOD BANK ORD ERABLES [facility] [address] [place] [address] * (ABNORMAL) COMPREHENSIVE METABOLIC PANEL (03/18/2019 10:02 AM CDT) Only the most recent of2 resultswithin the time period is included. Pathologist [facility] BUN 19 7 - 26 mg/dL 03/18/2019 10:33 AM [facility] Creatinine 0.9 0.6 - 1.2 mg/dL 03/18/2019 10:33 AM [facility] Sodium 140 136 - 145 mmol/L 03/18/2019 10:33 AM [facility] Potassium 4.2 3.5 - 4.5 mmol/L 03/18/2019 10:33 AM [facility] Chloride 108(H) 98 - 107 mmol/L 03/18/2019 10:33 AM [facility] CO2 21(L) 22 - 29 mmol/L 03/18/2019 10:33 AM [facility] Glucose 82 70 - 115 mg/dL 03/18/2019 10:33 AM [facility] Calcium 9.1 8.4 - 10.2 mg/dL 03/18/2019 10:33 AM [facility] Protein Total 6.5 6.0 - 8.3 g/dL 03/18/2019 10:33 AM [facility] Albumin 3.2(L) 3.4 - 5.0 g/dL 03/18/2019 10:33 AM [facility] Bilirubin Total 0.2 0.2 - 1.2 mg/dL 03/18/2019 10:33 AM [facility] Alkaline Phosphatase 69 40 - 150 Units/L 03/18/2019 10:33 AM [facility] ALT 15 0 - 55 Units/L 03/18/2019 10:33 AM [facility] AST 21 5 - 34 Units/L 03/18/2019 10:33 AM [facility] Anion Gap 15 8 - 18 03/18/2019 10:33 AM [facility] BUN/Creatinine Ratio 21 7 - 23 03/18/2019 10:33 AM [facility] Osmolality Calculated 291 270 - 300 mOsm/kg 03/18/2019 10:33 AM [facility] Albumin/Globulin Ratio 1.0(L) 1.1 - 2.3 03/18/2019 10:33 AM [facility] eGFR >60 >60 mL/min/1.7 3 m2 03/18/2019 10:33 AM [facility] Blood BLOOD SPECIMEN / Unknown Venipuncture / Unknown 03/18/2019 10:02 AM CDT 03/18/2019 10:08 AM CDT Jimmie Leonard III, MD LAB - CHEMISTR Y ORDERABLES Performing Organization Address [facility] Co de Phone Number [address] [phone] * LIPASE BLOOD (03/18/2019 10:02 AM CDT) Lipase 36 8 - 78 Units/L 03/18/2019 10:33 AM CDT [facility] Blood BLOOD SPECIMEN / Unknown Venipuncture / Unknown 03/18/2019 10:02 AM CDT 03/18/2019 10:08 AM CDT Jimmie Leonard III, MD LAB - CHEMISTR Y ORDERABLES Performing Organization Address [facility] Co de Phone Number [address] [phone] * T4 FREE (03/18/2019 10:02 AM CDT) T4 Free 0.9 0.7 - 1.5 ng/dL 03/18/2019 10:55 AM CDT [facility] Blood BLOOD SPECIMEN / Unknown Venipuncture / Unknown 03/18/2019 10:02 AM CDT 03/18/2019 10:08 AM CDT Jimmie Leonard III, MD LAB - CHEMISTR Y ORDERABLES Performing Organization Address [facility] Co de Phone Number [address] [phone] * TYPE + SCREEN PANEL (03/18/2019 9:39 AM CDT) Antibody Screen NEG 9 10:33 AM CDT [facility] ABO Rh B POS 03/18/2019 10:33 AM CDT [facility] Blood Bank BLOOD SPECIMEN / Unknown 03/18/2019 9:39 AM CDT 03/18/2019 9:49 AM CDT Jimmie Leonard III, MD LAB - BLOOD BA NK ORDERABLES [facility] [address] [place], [place] [id number] [place] [address] * CT ANGIO AORTA FOR DISSECTION (03/18/2019 9:33 AM CDT) Anatomical Region Laterality Modality Computed Tomogra phy 03/18/2019 9:34 AM CDT Impressions 03/18/2019 10:06 AM CDT IMPRESSION: 1.No evidence of dissection, IMH, penetrating atherosclerotic ulcer, or aneurysm. 2.No evidence of visceral ischemia or perforation. Report drafted by Jack Kyle M.D. (resident) I, Dr. YUNIOR KAMINSKI M.D. have personally reviewed and interpreted this examination/study. This report was electronically signed by YUNIOR KAMINSKI M.D. ??on 03/18/2019 10:06 AM . Narrative 03/18/2019 10:06 AM CDT EXAMINATION: Computed tomography (CT) of the chest, abdomen, and pelvis without and with contrast HISTORY: chest pain, sudden onset, pain to the back TECHNIQUE: CT of the chest, abdomen, and pelvis was performed prior to and following the uneventful administration of 100 mL of Isovue 370 intravenous contrast according to an angiogram dissection protocol. COMPARISON: No comparison images are available in the PACS system at the time of this dictation. FINDINGS: There is no acute aortic dissection, intramural hematoma, penetrating atherosclerotic ulcer, or aneurysm. There is a left-sided three-vessel aortic arch. The celiac, superior mesenteric, and inferior mesenteric arteries appear normal. Single renal arteries are seen bilaterally and appear normal. The common, external, and internal iliac arteries appear normal. The main pulmonary artery is not dilated. No filling defects to suggest pulmonary embolism are identified. Chest: The heart size is normal. No pericardial effusion is present. No mediastinal, hilar, supraclavicular, or axillary lymphadenopathy is seen. The thyroid gland enhances homogenously. Mild bilateral dependent atelectasis is present. Otherwise no focal consolidation is seen. No pulmonary nodule is identified. No pleural effusion or focal pleural thickening is seen. There is no evidence of pneumothorax. The trachea is patent and midline. Abdomen & Pelvis: The liver appears normal without focal lesion. The gallbladder is surgically absent. The intrahepatic and extrahepatic bile ducts are not dilated, and there is air in the intrahepatic bile ducts and extrapancreatic common bile duct. The spleen enhances homogenously without focal lesion. The pancreas and adrenal glands are normal. The kidneys appear normal in size and configuration and enhance symmetrically. No urinary calculus or hydronephrosis is seen. No free air or free fluid is identified in the abdomen. The distal esophagus and stomach appear normal. The small bowel and large bowel are normal in caliber without evidence of wall thickening or obstruction. The appendix is not seen; however, no inflammatory changes are seen in the right lower quadrant. There is no abdominal lymphadenopathy. The abdominal aorta is normal in course and caliber. No free fluid is seen in the pelvis. The urinary bladder is distended with fluid and appears normal. Pessary is noted. There is no pelvic lymphadenopathy. There is a chronic L1 right transverse process fracture. Well-defined lytic lesions in the L3 and L4 vertebral bodies are likely hemangiomas. The visible osseous structures are otherwise intact. Mild multilevel degenerative changes are noted in the spine. Bilateral breast implants are noted. Procedure Note Ritika Kaminski MD - 03/18/2019 EXAMINATION: Computed tomography (CT) of the chest, abdomen, and pelvis without and with contrast HISTORY: chest pain, sudden onset, pain to the back TECHNIQUE: CT of the chest, abdomen, and pelvis was performed prior toand following the uneventful administration of 100 mL of Isovue 370 intravenous contrast according to an angiogram dissection protocol. COMPARISON: No comparison images are available in the PACS system at the time of this dictation. FINDINGS: There is no acute aortic dissection, intramural hematoma, penetrating atherosclerotic ulcer, or aneurysm. There is a left-sided three-vessel aortic arch. The celiac, superior mesenteric, and inferior mesenteric arteries appear normal. Single renal arteries are seen bilaterally and appear normal. The common, external, and internal iliac arteries appear normal. The main pulmonary artery is not dilated. No filling defects to suggest pulmonary embolism are identified. Chest: The heart size is normal. No pericardial effusion is present. No mediastinal, hilar, supraclavicular, or axillary lymphadenopathy isseen. The thyroid gland enhances homogenously. Mild bilateral dependent atelectasis is present. Otherwise no focal consolidation is seen. No pulmonary nodule is identified. No pleural effusion or focal pleural thickening is seen. There is no evidence of pneumothorax. The trachea is patent and midline. Abdomen & Pelvis: The liver appears normal without focal lesion. The gallbladder is surgically absent. The intrahepatic and extrahepatic bile ducts are not dilated, and there is air in the intrahepatic bile ducts and extrapancreatic common bile duct. The spleen enhances homogenouslywithout focal lesion. The pancreas and adrenal glands are normal. The kidneys appear normal in size and configuration and enhance symmetrically. No urinary calculus or hydronephrosis is seen. No free air or free fluid is identified in the abdomen. The distal esophagus and stomach appear normal. The small bowel and large bowel are normal in caliber without evidence of wall thickening or obstruction.The appendix is not seen; however, no inflammatory changes are seen in the right lower quadrant. There is no abdominal lymphadenopathy. Theabdominal aorta is normal in course and caliber. No free fluid is seen in the pelvis. The urinary bladder is distendedwith fluid and appears normal. Pessary is noted. There is no pelvic lymphadenopathy. There is a chronic L1 right transverse process fracture. Well-defined lytic lesions in the L3 and L4 vertebral bodies are likely hemangiomas. The visible osseous structures are otherwise intact. Mild multilevel degenerative changes are noted in the spine. Bilateral breast implantsare noted. IMPRESSION: 1.No evidence of dissection, IMH, penetrating atherosclerotic ulcer, or aneurysm. 2.No evidence of visceral ischemia or perforation. Report drafted by Jack Kyle M.D. (resident) I, Dr. YUNIOR KAMINSKI M.D. have personally reviewed and interpretedthis examination/study. This report was electronically signed by YUNIOR KAMINSKI M.D. on 03/18/2019 10:06 AM . Jimmie Leonard III, MD CT ORDERABLES * (ABNORMAL) CBC W AUTO DIFFERENTIAL (03/18/2019 9:27 AM CDT) Only the most recent of2 resultswithin the time period is included. WBC 9.1 3.5 - 10.5 10? 3 /uL 03/18/2019 9:31 AM CDT [facility] RBC 3.58(L) 3.90 - 5.00 10? 6 /uL 03/18/2019 9:31 AM [facility] Hemoglobin 10.8(L) 12.0 - 15.5 g/dL 03/18/2019 9:31 AM [facility] Hematocrit 32.2(L) 35.0 - 45.0 % 03/18/2019 9:31 AM [facility] MCV 89.9 81.0 - 97.0 fL 03/18/2019 9:31 AM [facility] MCH 30.2 28.0 - 34.0 pg 03/18/2019 9:31 AM [facility] MCHC 33.5 32.0 - 36.0 g/dL 03/18/2019 9:31 AM [facility] Platelet Count 252 150 - 400 10? 3 /uL 03/18/2019 9:31 AM [facility] RDW-SD 39.4 36.0 - 50.0 fL 03/18/2019 9:31 AM [facility] RDW-CV 11.9 11.2 - 14.8 % 03/18/2019 9:31 AM [facility] MPV 10.1 9.3 - 12.8 fL 03/18/2019 9:31 AM [facility] nRBC Absolute 0.00 0 10? 3 /uL 03/18/2019 9:31 AM [facility] nRBC Auto 0.0 0 /100 WBC 03/18/2019 9:31 AM [facility] Neutrophils % 70.7(H) 35.0 - 70.0 % 03/18/2019 9:31 AM [facility] Lymphocytes % 21.7 19.7 - 55.1 % 03/18/2019 9:31 AM [facility] Monocytes % 5.7 3.0 - 15.0 % 03/18/2019 9:31 AM [facility] Eosinophils % 1.1 0.0 - 6.0 % 03/18/2019 9:31 AM [facility] Basophil % 0.6 0.0 - 1.5 % 03/18/2019 9:31 AM [facility] Neutrophils Absolute 6.4 1.6 - 7.0 10? 3 /uL 03/18/2019 9:31 AM CDT [facility] Lymphocyte Absolute 2.0 0.8 - 2.9 10? 3 /uL 03/18/2019 9:31 AM CDT [facility] Monocytes Absolute 0.52 0.14 - 0.66 10? 3 /uL 03/18/2019 9:31 AM CDT [facility] Eosinophils Absolute 0.10 0.00 - 0.45 10? 3 /uL 03/18/2019 9:31 AM CDT [facility] Basophils Absolute 0.05 0.00 - 0.06 10? 3 /uL 03/18/2019 9:31 AM CDT [facility] Immature Granulocytes % 0.2 0.0 - 1.0 % 03/18/2019 9:31 AM CDT [facility] Blood BLOOD SPECIMEN / Unknown Venipuncture / Unknown 03/18/2019 9:27 AM CDT 03/18/2019 9:27 AM CDT Jimmie Leonard III, MD LAB - HEMATOLO GY ORDERABLES [address] [phone] * (ABNORMAL) TSH (03/18/2019 9:27 AM CDT) TSH 6.886(H) 0.350 - 4.940 uIU/mL 03/18/2019 10:06 AM CDT [facility] Blood BLOOD SPECIMEN / Unknown Venipuncture / Unknown 03/18/2019 9:27 AM CDT 03/18/2019 9:27 AM CDT Jimmie Leonard III, MD LAB - CHEMISTR Y ORDERABLES Performing Organization Address [facility] [place]/State/ZIP Co de Phone Number [address] [phone] * XR CHEST 1VW (03/18/2019 8:43 AM CDT) Anatomical Region Laterality Modality Chest Radiographic Katy ging 03/18/2019 8:51 AM CDT Impressions 03/18/2019 8:53 AM CDT Mild bibasilar airspace opacification. Reading Radiologist: Zenaida Canales MD on 03/18/2019 at 8:53 AM Narrative 03/18/2019 8:53 AM CDT EXAMINATION: CHEST 1 VIEW HISTORY: 53-year-old with chest pain. COMPARISON: None. FINDINGS: Portable frontal view of the chest demonstrates mild bibasilar airspace opacification. There is no pleural effusion or pneumothorax. The heart size is normal. The thoracic aorta is mildly tortuous. Procedure Note Zenaida Canales MD - 03/18/2019 EXAMINATION: CHEST 1 VIEW HISTORY: 53-year-old with chest pain. COMPARISON: None. FINDINGS: Portable frontal view of the chest demonstrates mild bibasilar airspace opacification. There is no pleural effusion or pneumothorax. The heart size is normal. The thoracic aorta is mildly tortuous. IMPRESSION Mild bibasilar airspace opacification. Reading Radiologist: Zenaida Canales MD on 03/18/2019 at 8:53 AM Dilip Garcia MD DIAGNOSTIC IMAG ING ORDERABLES * EKG 15-LEAD (03/18/2019 8:32 AM CDT) Ventricular Rate 115 BPM CG MUSE Atrial Rate 115 BPM CG MUSE P-R Interval 126 ms CG MUSE QRS Duration ms 68 ms CG MUSE Q-T Interval ms 314 ms CG MUSE QTC Calculation (Bezet) 434 ms CG MUSE Calculated P Purvis 46 degrees CG MUSE Calculated R Purvis 46 degrees CG MUSE Calculated T Purvis 32 degrees CG MUSE Interpretation EKG Poor data quality Poor quality ecg, full interpretation not possible. Sinus tachycardia Confirmed by KALEN SALVADOR ([id number]) on 04/12/2019 11:30:04 AM CG MUSE 03/18/2019 8:32 AM CDT 04/12/2019 11:30 AM CDT Dilip Garcia MD ECG ORDERABLES CG MUSE * CK ISOENZYMES PANEL (03/18/2019 8:30 AM CDT) CK 120 24 - 173 U/L 03/20/2019 2:08 PM CDT [facility] Macro Type 2 0 Not Observed % 03/20/2019 2:08 PM CDT [facility] CK-MM % 100 97 - 100 % 03/20/2019 2:08 PM CDT [facility] Macro Type 1 0 Not Observed % 03/20/2019 2:08 PM CDT [facility] CK-MB% 0 0 - 3 % 03/20/2019 2:08 PM CDT [facility] CK-BB% 0 0 % 03/20/2019 2:08 PM CDT [facility] Blood BLOOD SPECIMEN / Unknown Venipuncture / Unknown 03/18/2019 8:30 AM CDT 03/18/2019 8:38 AM CDT Narrative [facility] - 03/20/2019 2:08 PM CDT Performed at: ??01 - [facility] ??[id number] Head Men'S Golf Coach: Jr Milton PhD, Phone: ??[phone] Dilip Garcia MD LAB - CHEMISTRY ORDERABLES [facility] [address] [place] [address] * PT PTT PANEL (03/18/2019 8:30 AM CDT) Pathologist [facility] PT 9.5 9.5 - 11.6 sec 03/18/2019 9:03 AM CDT [facility] INR 0.9 0.9 - 1.1 03/18/2019 9:03 AM CDT [facility] PTT 21.2 21.0 - 32.0 sec 03/18/2019 9:03 AM CDT [facility] Blood BLOOD SPECIMEN / Unknown Venipuncture / Unknown 03/18/2019 8:30 AM CDT 03/18/2019 8:39 AM CDT Narrative [facility] - 03/18/2019 9:03 AM CDT Conventional Warfarin Anticoagulant Therapy: INR Reference Range: ??2.0-3.0 Intensive Warfarin Anticoagulant Therapy: INR Reference Range: ? 2.5-3.5 Heparin Therapeutic Range for PTT: 50.5 - 74.3 seconds. Dilip Garcia MD LAB - COAGULATI ON ORDERABLES Performing Organization Address [facility] [place]/[facility] Co de Phone Number [facility] [address] [place] [address] * D-DIMER (03/18/2019 8:30 AM CDT) D-Dimer <200 ng/ml <200 ng/ml 03/18/2019 8:59 AM CDT [facility] Blood BLOOD SPECIMEN / Unknown Venipuncture / Unknown 03/18/2019 8:30 AM CDT 03/18/2019 8:39 AM CDT Narrative [facility] - 03/18/2019 8:59 AM CDT Typically, latex agglutination assays are not sensitive enough for evaluation of deep vein thrombosis and/or pulmonary embolism. Quantitative D-Dimer assays are available through reference lab Dilip Garcia MD LAB - COAGULATI ON ORDERABLES Performing Organization Address [facility] [place]/[facility] Co de Phone Number [facility] [address] [place] [address] * LAB HISTORICAL RESULTS-ONBASE (01/11/2015) Only the most recent of9 resultswithin the time period is included. 01/11/[address] [facility] - 02/01/2015 2:26 PM CDT Historical Provider LAB - CHEMISTRY O RDERABLES Performing Organization Address [facility] [place]/[facility] Co de Phone Number [facility] [address] [place] [address], [facility] [place] Care Teams Paragliding Instructor Relationship Specialty Start Date End Date Kalen Null MD [address] [place] [address] PCP - General Family Medicine 03/18/19
--- OUTSIDE RECORDS SUMMARY | 2024-09-28 16:53 | XMS_ITS | Continuity of Care Document ---
Author Organization [facility] Address [address] [place] [address] Phone Care Team Providers Care Learning Technologist Name Role Phone Sylwia Garza Unavailable Unavailab le Procedures Procedure Date ENDOSCOPIC ULTRASOUND EXAM UPPER GI ENDOSCOPY BIOPSY Advance Directives Directive Yes / No Effective Date File Name No Information Encounters Encounter Description Practice Location Reason(s) For Visit Diagnoses Date Provider Providers Copied on Encounter [facility], [address], [place], [place], [address], tel:[phone] [facility] No Information Kunal Dao. [address] [place], [place], [id number] , [place]. [phone] [facility], [address], [place], [place], [address], [place] tel:[phone] [facility] No Information Donna Syed. [address] , [facility] [address], [place], [address], [place]. [phone] Referring Provider: Farshad Dowling, [address], [place], [address]. tel:[phone] [facility], [address], [place], [place], [address], [place] tel:[phone] [facility] Disease of pancreas Donna Syed. [address], [place], [address], [place]. [phone] Family History Family Member Type Diagnosis Age At Onset No Information Payers Payer name Insurance type Covered republican ID Authorjaycob hernandez(sRay [employer] PPO SELF FUNDED PLANS [id number] Social History Type Description Quantity Date Captured Comments Alcohol Use Details Unknown Caffeine Use Details Unknown Tobacco Use Status No Information Smoking Status No Information Sex Female Chief Complaint And Reason For Visit No Information Reason For Referral Reason For Referral No Information Plan Of Treatment Date Type Action Status Referral Ordered: GI ENDOSCOPIC ULTRASOUND Appointment date/timeframe: 04/16/2019 ordered History Of Present Illness Encounter Date Complaint History Of Prese nt Illness No Information Functional Status Date Functional Assessmen t No Information Instructions Date Instruction Additional Infor mation No Information Assessments Type Assessment Date No Information Patient Care Teams Name Effective Dates (start - stop) Status Members No Information
--- OUTSIDE RECORDS SUMMARY | 2024-09-28 16:53 | XMS_ITS | Clinical Summary ---
Author Organization [facility] Address [address] [place] [address]. [place] [address] [place] [address] Care Team Providers Care Toilet Attendant Name Role Phone Kalen Null MD Primary Care Provider [phone] Allergies Active Allergy Reactions Criticality Noted Date Comments Fentanyl Unknown 02/22/2013 Pt reports that she had some itching years ago with Fentanyl. She has had it since then for procedure and did not have any problem with it. Hyoscyamine Unknown 02/22/2013 Medications DULoxetine 60 MG capsule Take 60 mg by mouth daily. 10/08/2021 Active estradiol 1 MG tablet Take 1 mg by mouth daily. 10/19/2021 Active levothyroxine 25 MCG tablet Take 25 mcg by mouth daily. 11/05/2021 Active medroxyPROGESTE Harvinder 5 MG tablet Take 5 mg by mouth nightly at bedtime. at bedtime. 11/01/2021 Active pantoprazole EC 40 MG tablet Take 40 mg by mouth daily. 10/03/2021 Active traZODone 50 MG tablet Take 50 mg by mouth daily. 10/18/2021 Active VIIBRYD 40 MG tablet Take 40 mg by mouth daily. 09/20/2021 Active Immunizations Name Administration Dates Next Due Hepatitis A (Havrix [address]) 06/29/2016,2015 Influenza (Generic) 06/03/2016,06/30/2013 Influenza Adult (Generic) 07/03/2021,05/28/2020, 09/24/2019 Tdap (Generic) 11/18/2012 Social History Tobacco Use Types Packs/Day Years Used Date Smoking Tobacco: Never Smokeless Tobacco: Never Alcohol Use Standard Drinks/Week Comments Not Currently 0 (1 standard drink = 0.6 oz pur e alcohol) Comments Unknown Sex and Gender Information Value Date Recorded Sex Assigned at Not on file Legal Sex Female 11:30 PM CDT Gender Identity Not on file Sexual Orientation Not on file Last Filed Vital Signs Vital Sign Reading Time Taken Comments Blood Pressure 105/62 02/05/2022 10:27 AM CDT Pulse 72 02/05/2022 10:27 AM CDT Temperature - - Respiratory Rate 16 02/05/2022 10:27 AM CDT Oxygen Saturation 99% 02/05/2022 10:27 AM CDT Inhaled Oxygen Concentration - - Weight 82.6 kg (182 lb) 01/30/2022 12:41 PM CDT Height 170.2 cm (5' 7 ) 01/30/2022 12:41 PM CDT Body Mass Index 28.51 01/30/2022 12:41 PM CDT Plan of Treatment Health Maintenance Due Date Last Done Comments Cervical Cancer Screening Pap Smear (Age 30 to 64) Every 3 Years 1964 Annual Physical 1967 PHQ-2 (Physician [place]) 1976 Hepatitis C 1982 Cervical Cancer Screening Pap with HPV Testing (Age 30 to 64) Every 5 Years 1994 Cervical Cancer Screening with HPV 1994 Mammogram Screening 2004 Zoster Vaccines (1 of 2) 2014 DTaP, Tdap and Td Vaccines (2 - Td or Tdap) 11/18/2022 11/18/2012 COVID-19 Vaccine ( season) 2024 09/03/2021, 10/19/2020, 09/22/2020 Influenza Adult (#1) 2024 07/03/2021, 05/28/2020, 09/24/2019, Additional history exists PHQ-2 (Physician [place]) 09/01/2024 Colorectal Cancer Screening Colonoscopy (10 Years) 02/06/2032 02/05/2022, 02/05/2022, RSV Immunization or 60+ Years (1 - 1-dose 75+ series) 2039 Meningococcal B Vaccine Aged Out No l onger eligible based on patient's age to complete this topic Meningococcal Vaccine Aged Out No nabor zenon eligible based on patient's age to complete this topic Pneumococcal Vaccine: Pediatrics (0 to 5 Years) and At-Risk Patients (6 to 64 Years) Aged Out No longer eligible based on patient's age to complete this topic RSV Immunizations Under 20 Months Aged Out No longer eligible based on patient's age to complete this topic Procedures Procedure Name Priority Date/Time Associated Diagnosis Comments COLONOSCOPY Routine 02/05/2022 7:57 AM CDT from Last 3 Months or Most Recently Relevant to Health Maintenance Results * Colonoscopy ( PEDIATRIC PHYSICIAN ASSISTANT) Narrative [facility] TO EPIC CONVERSION - PEDIATRIC PHYSICIAN ASSISTANT Documented hx of procedure Procedure Note , Generic Conversion, - 07/05/2018 Documented hx of procedure us Generic Conversion Md [facility] PROCEDURE ORDERABLES Final Result [facility] TO EPIC CONVERSION from Last 3 Months or Most Recently Relevant to Health Maintenance Insurance [facility] Advance Directives Documents on File Type Date Recorded Patient Bed And Breakfast Cook Expl anation Advance Directives and Living Will 06/24/2012 12:00 AM ADVANCED DIRECTIVES Advance Directives and Living Will 06/23/2012 12:00 AM ADVANCED DIRECTIVES Care Teams Toilet Attendant Relationship Specialty Start Date End Date Kalen Null MD [address] [place] [address] PCP - General 10/07/22
== END 2024-09-28 16:48 | disposition home or self-care (01) ==
PROVIDERS: PCP Family Medicine; Visit Provider Physician Assistant
DX: R05.9 Cough, unspecified (principal)
CPT/HCPCS: 71046

== ENCOUNTER 2025-02-23 12:53 | Outpatient (CLI) | payer OTHER, SELFPAY ==
--- NOTE | ~2025-02-23 | DEXA_ITS ---
Bone Density Report Name: PAT GRIFFIN Age: 59 Sex: Female Ethnicity: White Date of : 1965 Indication: postmenopausal; screening for osteoporosis; Referring Provider: CRYSTAL RODRIGUEZ Study: Bone densitometry was performed. Exam Date: February 23, 2025 Accession number: [id number] Bone Density: Region BMD T-score Z-score Classification AP Spine(L1-L4) 1.000 -0.4 1.0 Normal Femoral Neck (Left) 0.803 -0.4 0.9 Normal Total Hip (Left) 1.061 1.0 2.0 Normal Femoral Neck (Right) 0.740 -1.0 0.3 Normal Total Hip (Right) 0.987 0.4 1.4 Normal Total Hip Mean 1.024 0.7 1.7 Normal World Health Organization criteria for BMD impression classify patients as: Normal (T-score at or above -1.0), Osteopenia (T-score between -1.0 and -2.5), or Osteoporosis (T-score at or below -2.5). 10-year Fracture Risk: FRAX not reported because: All T-scores for Spine Total, Hip Total, Femoral Neck at or above -1.0 Previous Exams: -- Region Exam Age BMD T-score BMD Change BMD Change Date g/cm2 vs Baseline vs Previous -- AP Spine (L1-L4) 02/23/2025 59 1.000 -0.4 0.6% 0.6% 05/26/2015 50 0.994 -0.5 Total Hip(Left) 02/23/2025 59 1.061 1.0 0.3% 0.3% 05/26/2015 50 1.057 0.9 Total Hip(Right) 02/23/2025 59 0.987 0.4 -1.2% -1.2% 05/26/2015 50 0.998 0.5 -- *Denotes significance at 95% confidence level, LSC for AP Spine = 0.022 g/cm2, LSC for Total Hip = 0.027 g/cm2 Clinical Information Provided by Patient: Has used the following medications: HRT (i.e. estrogen/hormone therapy), LEVOTHYROXINE Patient maximum height was 67.0 Menopause Age: 47 No regular weight bearing exercise Does not regularly consume dairy products Drinks caffeinated beverages Onset of menses at age 13 Number of children 3 Impression: The patient has normal bone mass. No significant bone loss was observed. Discussion: BONE DENSITY IS ABOVE THE MINIMUM DESIRABLE LEVEL AT ALL SKELETAL SITES TESTED. This patient?s bone mineral density is above the minimum desirable level (T-score -1.0 or better) at all sites measured. The patient should follow a healthful lifestyle (good nutrition with adequate calcium and vitamin D, and appropriate weight-bearing exercise). Follow-Up: Consider repeating this study in 5 years or sooner if there is some new clinical indication. Reported by: ELVIA on 02/23/2025 1:27:00 PM. Reviewed, dictated and finalized at location A.
== END 2025-02-23 12:54 | disposition home or self-care (01) ==
LOC: MICIMG 12:53
PROVIDERS: PCP Family Medicine; Visit Provider Obstetrics & Gynecology Gynecology
DX: Z78.0 Asymptomatic menopausal state (principal)
CPT/HCPCS: 77080

== ENCOUNTER 2025-08-18 11:22 | Outpatient (CLI) | payer OTHER, SELFPAY ==
--- NOTE | ~2025-08-18 | MM_ITS ---
EXAMINATION: MM scrn ander implant BI w mis INDICATION: Asymptomatic, referred for screening mammogram COMPARISON: 08/05/2022 through 05/26/2015 TECHNIQUE: Digital Breast Tomosynthesis CC, MLO, and implant displaced CC and MLO views of Both breasts were obtained with computer-aided detection to assist in interpretation of the study. FINDINGS: The breasts are heterogeneously dense, which may obscure small masses. Bilateral breast Retropectoral Saline implants in place appears intact. No focal dominant mass, architectural distortion, or suspicious microcalcifications are identified. There are no features to suggest malignancy. IMPRESSION: 1. No evidence of malignancy in the breasts. 2. Both breasts Retropectoral Saline implants appears intact. Recommend continued screening mammography BI-RADS 1, NEGATIVE Reviewed, dictated and finalized at location A. RWRITING ASSISTANT
== END 2025-08-18 11:23 | disposition home or self-care (01) ==
LOC: MICIMG 11:23
PROVIDERS: PCP Family Medicine; Visit Provider Obstetrics & Gynecology Gynecology
DX: Z12.31 Encounter for screening mammogram for malignant neoplasm of breast (principal)
CPT/HCPCS: 77063; 77067